=== PATIENT | male | born 1950 | race Caucasian/White ===

== ENCOUNTER 2017-11-30 13:39 | Emergency (ER) | payer OTHER ==
[2017-11-30 14:44] LABS: #Eosinphils 0.1 thou/uL (0.0-0.7); #Lymphocytes 1.7 thou/uL (1.20-3.40); #Monocytes 0.6 thou/uL (0.11-0.59); #Neutrophils 5.5 thou/uL (1.40-6.50); %Basophils 0.3 % (0.0-1.0); %Eosinophils 1.9 % (0.0-10.0); %Lymphocytes 21.2 % (21.0-51.0); %Monocytes 7.8 % (0.0-10.0); %Neutrophils 68.8 % (42.0-75.0); Hemoglobin 11.8 g/dL (14.0-18.0); Mean Corpuscular Hemoglobin 28.5 pg (27.0-31.0); Mean Corpuscular Volume 88.8 fL (78.0-98.0); Mean Platelet Volume 7.6 fL (7.4-10.4); Platelet Count 253 thou/uL (130-400); RBC Distribution Width 14.3 % (11.5-14.5); Red Blood Cell (RBC) Count 4.16 mill/uL (4.70-6.10); White Blood Cell (WBC) Count 7.9 thou/uL (4.8-10.8)
[2017-11-30 14:57] LABS: ALT (SGPT) 13 U/L (8-55); AST (SGOT) 18 U/L (5-34); Albumin 3.7 g/dL (3.4-4.8); Alkaline Phosphatase 121 U/L (40-150); Anion Gap 13 mmol/L (10-20); BUN (Urea Nitrogen) 16 mg/dL (8.4-25.7); Bilirubin, Total 1.2 mg/dL (0.2-1.2); Calc. Creatinine Clearance 0 mL/min (70-130); Calcium 9.6 mg/dL (7.8-10.44); Carbon Dioxide 28 mmol/L (23-31); Chloride 101 mmol/L (98-107); Estimated GFR-MDRD 60; Globulin 3.3 g/dL (2.4-3.5); Glucose 143 mg/dL (80-115); Potassium 3.3 mmol/L (3.5-5.1); Sodium 139 mmol/L (136-145)
[2017-11-30 15:02] LABS: CKMB 1.1 ng/mL (0-6.6); Troponin I Less than 0.010 ng/mL (< 0.028)
--- NOTE | 2017-11-30 15:52 | RAD ---
CHEST 1 VIEW: HISTORY: Swelling of the lower extremities. COMPARISON: 08/31/2014. FINDINGS: Left-sided transvenous defibrillator with lead position over the right atrium, right ventricle, and c oronary sinus. Heart is enlarged. The pulmonary vessels are within normal limits. Costophrenic ang les are clear. No consolidation or mass. No pneumothorax or osseous abnormalities. IMPRESSION: Cardiomegaly without evidence of congestive heart failure. POS: [facility]
[2017-11-30] MEDS ORDERED: Potassium Chloride 20 MEQ TAB ONE (15:56)
[2017-11-30] MEDS ORDERED: Bacitracin Zinc 1 Packet ONE (15:56)
--- NOTE | 2017-11-30 15:58 | ULT ---
BILATERAL LOWER EXTREMITY VENOUS ULTRASOUND WITH DOPPLER: HISTORY: Bilateral lower extremity swelling and edema. COMPARISON: None. TECHNIQUE: Echeverria scale, color flow, Doppler imaging and spectral waveform analysis is performed of the right and left lower extremity venous system. FINDINGS: Bilaterally, there is soft tissue swelling. Bilaterally, there is compressibility, presence of flow, and augmentation of the common femoral vein, femoral vein, and popliteal vein. There is flow in bilateral greater saphenous veins, profunda vein s. There is flow in the bilateral posterior tibial veins. IMPRESSION: 1. No evidence of thrombus in the left or right lower extremity venous system. 2. Bilateral lower extremity edema. POS: [facility]
--- NOTE | 2017-12-06 13:41 | EKG ---
Test Reason : Blood Pressure : / mmHG Vent. Rate : 071 BPM Atrial Rate : 063 BPM P-R Int : 000 ms QRS Dur : 140 ms QT Int : 474 ms P-R-T Axes : 000 039 -09 degrees QTc Int : 515 ms Ventricular-paced rhythm Abnormal ECG Confirmed by STERLING BECERRA DO ([id number]), image editor JUAN RODRIGUEZ ([id number]) on 12/06/2017 1:41:38 PM Referred By: Confirmed By:STERLING BECERRA DO
== END 2017-11-30 16:28 | disposition home or self-care (01) ==
LOC: ERS 13:39
DX: S80.822A Blister (nonthermal), left lower leg, initial encounter (principal); E87.6 Hypokalemia; I10 Essential (primary) hypertension; R60.0 Localized edema; E66.01 Morbid (severe) obesity due to excess calories; G47.30 Sleep apnea, unspecified; I25.2 Old myocardial infarction; E11.9 Type 2 diabetes mellitus without complications; K21.9 Gastro-esophageal reflux disease without esophagitis; E78.5 Hyperlipidemia, unspecified; M19.90 Unspecified osteoarthritis, unspecified site; I48.91 Unspecified atrial fibrillation; F17.210 Nicotine dependence, cigarettes, uncomplicated; Z79.899 Other long term (current) drug therapy; Z79.4 Long term (current) use of insulin; Z79.1 Long term (current) use of non-steroidal anti-inflammatories (NSAID); X58.XXXA Exposure to other specified factors, initial encounter
CPT/HCPCS: 36415; 36416; 71045; 80053; 82553; 83735; 83880; 84484; 85025; 93005; 93970; 94760

== ENCOUNTER 2018-01-15 13:26 | Outpatient (CLI) | payer MEDICARE, OTHER ==
--- NOTE | 2018-01-16 01:07 | HP ---
This is to replace dictation that I have started before and had to stop because of a telephone call. HISTORY OF PRESENT ILLNESS: Mr. Isaac Iraheta is a very pleasant 67-year-old gentleman who presented to the [facility] for evaluation of multiple venous ulcerations of the left lateral lower leg. The patient states that the ulcerations were first noted approximately 5 to 6 months ago. He states that he has been placed on Lasix to decrease the swelling of his lower extremities. He states that he continues to have, however, copious serous drainage from his wounds. The patient is receiving assistance with dressing changes by Home Health. The patient was referred to the Wound Center by Dr. Olivia Brooks. PAST MEDICAL HISTORY: 1. Congestive heart failure. 2. Diabetes mellitus. 3. Hypertension. 4. History of chronic headaches. 5. Coronary artery disease. 6. Chronic low back pain. 7. History of atrial fibrillation and atrial flutter, status post ablation x3. 8. Allergic rhinitis. 9. Gastroesophageal reflux disease. 10. Obstructive sleep apnea. 11. Asthma. 12. History of GI bleeding. 13. Osteoarthritis. PAST SURGICAL HISTORY: 1. Surgery for obstructive sleep apnea including tonsillectomy. 2. Left knee replacement. 3. Exploratory laparotomy. 4. Cataract surgery. 5. Defibrillator placement. MEDICATIONS: 1. Hydralazine. 2. Metformin. 3. Hydrocodone. 4. Soma. 5. Pradaxa. The patient does not have a list of his medications with him today. ALLERGIES: NO KNOWN DIAGNOSED ALLERGIES. SOCIAL HISTORY: Negative for tobacco use. The patient admits to consumption of alcohol on the weekends in the past. He states that he has not consumed alcohol in the last 6 to 7 years. FAMILY HISTORY: Significant for diabetes mellitus. The patient's mother and father were both diagnosed with diabetes mellitus. Family history is also significant for coronary artery disease. The patient's mother and father were both diagnosed with coronary artery disease. PHYSICAL EXAMINATION: VITAL SIGNS: Temperature 97.7, pulse 73, respirations 17, blood pressure 139/68. Accu-Chek 97. GENERAL: A 67-year-old gentleman, sitting on chair in examination room, in no acute distress. HEENT: Normocephalic, atraumatic. NECK: No nuchal rigidity. CHEST: Clear to auscultation. CV: Regular rate and rhythm. ABDOMEN: Soft. EXTREMITIES: Multiple ulcerations of the left lateral lower leg are present. These ulcerations are associated with copious serous drainage. No cellulitis of the left lower leg is appreciated. No maceration of the skin of the periwound of any of the wounds is noted. A dorsalis pedis pulse is palpable on the left. Edema of the left foot and lower leg is present on exam today. Edema of the right foot and lower leg is also present on today's exam. The circumferences of the right lower extremity at the ankle, calf, and knee are 33 cm, 49 cm, and 46 cm. Circumferences of the left lower extremity at the ankle, calf, and knee are 52 cm, 53 cm, and 48 cm. NEUROLOGIC: Grossly nonfocal. ASSESSMENT AND PLAN: 1. Chronic venous hypertension with ulcers and inflammation. Dressing changes of Xeroform gauze, ABDs, Kerlix, and Benjie bandages will be initiated today. These dressing changes are to be performed 3 times per week after cleansing and irrigation with the assistance of Home Health. The patient states that his will be able to perform dressing changes on the remaining days of the week. No antibiotics will be prescribed today based upon the appearance of the wounds. I will see Mr. Iraheta again on 02/05/2018. At this time, arrangements will begin for the initiation of in-home lymphedema therapy with a pneumatic pump. The patient will also be referred to Dr. Redman for evaluation for venous ablation on the left. The patient states that he is in the process of obtaining bariatric surgery. I have also encouraged the patient to ambulate for 5 to 10 minutes every hour while awake. The patient understands and is in agreement with the preceding treatment plan. 2. Congestive heart failure. 3. Diabetes mellitus. The patient's Accu-Chek in clinic today is 97. The patient has been told that for optimal wound healing, his blood glucoses should remain below 150. 4. Hypertension. 5. Chronic headaches. 6. Coronary artery disease. 7. Chronic low back pain. 8. History of atrial fibrillation and atrial flutter, status post ablation x3. 9. Allergic rhinitis. 10. Gastroesophageal reflux disease. 11. Obstructive sleep apnea. 12. Asthma. 13. History of gastrointestinal bleeding. 14. Osteoarthritis. Job ID: [id number]
== END 2018-01-15 13:27 | disposition home or self-care (01) ==
LOC: WCC 13:26
PROVIDERS: ATTEND Family Medicine
DX: I87.332 Chronic venous hypertension (idiopathic) with ulcer and inflammation of left lower extremity (principal); E11.622 Type 2 diabetes mellitus with other skin ulcer; L97.929 Non-pressure chronic ulcer of unspecified part of left lower leg with unspecified severity; I11.0 Hypertensive heart disease with heart failure; I50.9 Heart failure, unspecified; R51 Headache; I25.10 Atherosclerotic heart disease of native coronary artery without angina pectoris; M54.5 Low back pain; G89.29 Other chronic pain; K21.9 Gastro-esophageal reflux disease without esophagitis; G47.33 Obstructive sleep apnea (adult) (pediatric); J45.909 Unspecified asthma, uncomplicated; M19.90 Unspecified osteoarthritis, unspecified site; Z86.79 Personal history of other diseases of the circulatory system; Z87.19 Personal history of other diseases of the digestive system

== ENCOUNTER 2018-02-05 13:43 | Outpatient (CLI) | payer MEDICARE, OTHER ==
[2018-02-05] MEDS ORDERED: Sodium Chloride 0.9% 15 ML NEB ONE (15:00)
--- NOTE | 2018-02-05 15:20 | PRG ---
DATE OF SERVICE: 02/05/2018 HISTORY: Mr. Isaac Iraheta is a very pleasant, 67-year-old gentleman, who presents to the [facility]ound Center for evaluation of multiple venous ulcerations of the right and left lower legs. The patient stated at the time of his initial presentation to the Wound Center that the ulcerations of the left lower leg were first noted approximately 5 to 6 months previously. He stated that he had been placed on Lasix to decrease the swelling of his lower extremities. He stated that he continued to have, however, copious serous drainage from his wounds. The patient continues to receive assistance with dressing changes by Home Health. Mr. Iraheta was referred to the Wound Center by Dr. Olivia Brooks. PHYSICAL EXAMINATION: VITAL SIGNS: Temperature 97.5, pulse 71, respirations 18, blood pressure 143/69. EXTREMITIES: A circumferential ulceration of the left lower leg is present with a length of approximately 15 cm. The patient also has an ulceration over the right lower leg. The ulceration of the left lower leg is again associated with copious serous drainage. No cellulitis of the right or left lower leg is appreciated. No maceration of the skin of the periwound of either wound is noted. A dorsalis pedis pulse is palpable on the left and on the right. Less edema of the right and left lower extremities is present on exam today than at the time of the patient's last visit. ASSESSMENT AND PLAN: 1. Chronic venous hypertension with ulcers and inflammation. Dressing changes of Xeroform gauze, ABDs, Webril, and the 3M Coban 2-Layer Compression System will be initiated today. These dressing changes are to be performed 2 times per week after cleansing and irrigation. I will see Mr. Iraheta again in 2 weeks. Arrangements will continue for the initiation of in-home lymphedema therapy with a pneumatic pump. The patient states he will be seen by Dr. Redman for evaluation for venous ablation on the left early next year. The patient again reiterates that he is in the process of obtaining bariatric surgery. 2. Congestive heart failure. 3. Diabetes mellitus. Accu-Cheks will be obtained at the time of the patient's clinic visits. The patient has been reminded that for optimal wound healing, his blood glucoses should remain below 150. 4. Hypertension. 5. Chronic headaches. 6. Coronary artery disease. 7. Chronic back pain. 8. History of atrial fibrillation and atrial flutter, status post ablation x3. 9. Allergic rhinitis. 10. Gastroesophageal reflux disease. 11. Obstructive sleep apnea. 12. Asthma. 13. History of gastrointestinal bleeding. 14. Osteoarthritis. Job ID: [id number]
== END 2018-02-05 13:44 | disposition home or self-care (01) ==
LOC: WCC 13:43
PROVIDERS: ATTEND Family Medicine
DX: I87.333 Chronic venous hypertension (idiopathic) with ulcer and inflammation of bilateral lower extremity (principal); E11.22 Type 2 diabetes mellitus with diabetic chronic kidney disease; I13.0 Hypertensive heart and chronic kidney disease with heart failure and stage 1 through stage 4 chronic kidney disease, or unspecified chronic kidney disease; I50.9 Heart failure, unspecified; N18.9 Chronic kidney disease, unspecified; R51 Headache; M54.5 Low back pain; K21.9 Gastro-esophageal reflux disease without esophagitis; M19.90 Unspecified osteoarthritis, unspecified site; J45.909 Unspecified asthma, uncomplicated; G47.33 Obstructive sleep apnea (adult) (pediatric)
CPT/HCPCS: 29581; A4218

== ENCOUNTER 2018-02-19 14:23 | Outpatient (CLI) | payer MEDICARE, OTHER ==
--- NOTE | 2018-02-19 15:43 | PRG ---
DATE OF SERVICE: 02/19/2018 SUBJECTIVE: Mr. Isaac Iraheta is a very pleasant 67-year-old gentleman, who presents to the [facility] Center for evaluation of multiple venous ulcerations of the right and left lower legs. The patient stated at the time of his initial presentation to the Wound Center that the ulcerations of the left lower leg were first noted approximately 5 to 6 months previously. He stated that he had been placed on Lasix to decrease the swelling of his lower extremities. He stated that he continued to have however copious serous drainage from his wounds. The patient states he still receiving assistance with dressing changes by Home Health. Mr. Iraheta was referred to the Wound Center by Dr. Olivia Brooks. OBJECTIVE: VITAL SIGNS: Temperature 97.4, pulse 83, respirations 20, blood pressure 131/71. Accu-Chek 124. EXTREMITIES: A large ulceration of the left lower leg is present, which measures approximately 19.4 x 14.8 cm. The patient also has an ulceration over the right lower leg. The ulceration of the left lower leg is associated with copious green serous drainage. No cellulitis of the right or left lower leg is appreciated. No maceration of the skin of the periwound of either wound is noted. Edema of the right and left lower extremities is present on exam today. ASSESSMENT AND PLAN: 1. Chronic venous hypertension with ulcers and inflammation. Dressing changes of Xeroform gauze, ABDs, Webril, and the 3M Coban 2 Layer Compression System will be continued 1 to 2 times per week after cleansing and irrigation with the assistance of Home Health. I will see Mr. Iraheta again on 03/12/2018. At this time, arrangements will continue for the initiation of in-home lymphedema therapy with a pneumatic pump. The patient previously stated that he will be seen by Dr. Redman for evaluation for venous ablation on the left. The patient again states that he is in the process of obtaining bariatric surgery. He states he has also lost weight on his own. 2. Congestive heart failure. 3. Diabetes mellitus. The patient's Accu-Chek in clinic today is 124. The patient has been reminded that for optimal wound healing his blood glucoses should remain below 150. 4. Hypertension. 5. Chronic headaches. 6. Coronary artery disease. 7. Chronic back pain. 8. History of atrial fibrillation and atrial flutter, status post ablation x3. 9. Allergic rhinitis. 10. Gastroesophageal reflux disease. 11. Obstructive sleep apnea. 12. Asthma. 13. History of gastrointestinal bleeding. 14. Osteoarthritis. Job ID: [id number]
[2018-02-19] MEDS ORDERED: Sodium Chloride 0.9% 15 ML NEB ONE (17:43)
== END 2018-02-19 14:24 | disposition home or self-care (01) ==
LOC: WCC 14:23
PROVIDERS: ATTEND Family Medicine
DX: I87.333 Chronic venous hypertension (idiopathic) with ulcer and inflammation of bilateral lower extremity (principal); E11.622 Type 2 diabetes mellitus with other skin ulcer; L97.929 Non-pressure chronic ulcer of unspecified part of left lower leg with unspecified severity; L97.919 Non-pressure chronic ulcer of unspecified part of right lower leg with unspecified severity; I11.0 Hypertensive heart disease with heart failure; I50.9 Heart failure, unspecified; R51 Headache; I25.10 Atherosclerotic heart disease of native coronary artery without angina pectoris; M54.9 Dorsalgia, unspecified; K21.9 Gastro-esophageal reflux disease without esophagitis; G47.33 Obstructive sleep apnea (adult) (pediatric); J45.909 Unspecified asthma, uncomplicated; M19.90 Unspecified osteoarthritis, unspecified site; Z86.79 Personal history of other diseases of the circulatory system; Z87.19 Personal history of other diseases of the digestive system
CPT/HCPCS: A4218

== ENCOUNTER 2018-04-16 14:12 | Outpatient (CLI) | payer MEDICARE, OTHER ==
--- NOTE | 2018-04-16 11:15 | PRG ---
DATE OF SERVICE: 04/16/2018 HISTORY: Mr. Isaac Iraheta is a very pleasant 67-year-old gentleman, who presents to the [facility]ound Center for evaluation of multiple venous ulcerations of the right and left lower legs. The patient stated at the time of his initial presentation to the Wound Center that the ulcerations of the left lower leg were first noted approximately 5 to 6 months previously. He stated that he had been placed on Lasix to decrease the swelling of his lower extremities. He stated that he continued, however, to have copious serous drainage from his wounds. The patient continues to receive assistance with dressing changes by Home Health. The patient was referred to the Wound Center by Dr. Olivia Brooks. OBJECTIVE: VITAL SIGNS: Temperature 97.4, pulse 73, respirations 19, blood pressure 144/71. Accu-Chek 111. EXTREMITIES: A large ulceration of the left lower leg is present, which measures approximately 10.5 x 4.0 cm. The ulceration over the right lower leg has healed completely. No cellulitis of the right or left lower leg is appreciated. No maceration of the skin of the periwound of the left lower leg ulceration is noted. A dorsalis pedis pulse is palpable on the right and on the left. Less edema of the right and left lower extremities is present than at the time of the patient's last visit. ASSESSMENT AND PLAN: 1. Chronic venous hypertension with ulcers and inflammation. As stated above, the ulceration over the right lower leg has healed completely. For the remaining ulceration, dressing changes of Xeroform gauze, ABDs, Webril, and the 3M Coban 2 Layer Compression System will be continued 1 to 2 times per week after cleansing and irrigation with the assistance of Home Health. Webril and the 3M Coban 2 Layer Compression System will be applied to the right foot and lower leg at the time of dressing changes. I will see Mr. Iraheta again in 4 weeks. 2. Lymphedema tarda stage 2. The patient has received a pneumatic pump for in-home lymphedema therapy. He states that he is utilizing his pneumatic pump on a daily basis. 3. Congestive heart failure. 4. Diabetes mellitus. The patient's Accu-Chek in clinic today is 111. The patient has been reminded that for optimal wound healing, his blood glucoses should remain below 150. 5. Hypertension. 6. Chronic headaches. 7. Coronary artery disease. 8. Chronic back pain. 9. History of atrial fibrillation and atrial flutter, status post ablation x3. 10. Allergic rhinitis. 11. Gastroesophageal reflux disease. 12. Obstructive sleep apnea. 13. Asthma. 14. History of gastrointestinal bleeding. 15. Osteoarthritis. Job ID: [id number]
[2018-04-16] MEDS ORDERED: Sodium Chloride 0.9% 15 ML NEB ONE (18:00)
== END 2018-04-16 14:13 | disposition home or self-care (01) ==
LOC: WCC 14:12
PROVIDERS: ATTEND Family Medicine
DX: I87.332 Chronic venous hypertension (idiopathic) with ulcer and inflammation of left lower extremity (principal); E11.622 Type 2 diabetes mellitus with other skin ulcer; L97.929 Non-pressure chronic ulcer of unspecified part of left lower leg with unspecified severity; I11.0 Hypertensive heart disease with heart failure; I50.9 Heart failure, unspecified; I89.0 Lymphedema, not elsewhere classified; R51 Headache; I25.10 Atherosclerotic heart disease of native coronary artery without angina pectoris; M54.9 Dorsalgia, unspecified; G89.29 Other chronic pain; J30.9 Allergic rhinitis, unspecified; K21.9 Gastro-esophageal reflux disease without esophagitis; G47.33 Obstructive sleep apnea (adult) (pediatric); J45.909 Unspecified asthma, uncomplicated; M19.90 Unspecified osteoarthritis, unspecified site
CPT/HCPCS: 29581; A4218

== ENCOUNTER 2018-05-14 15:26 | Outpatient (CLI) | payer MEDICARE, OTHER ==
--- NOTE | 2018-05-14 11:10 | PRG ---
DATE OF SERVICE: 05/14/2018 SUBJECTIVE: Mr. Isaac Iraheta is a very pleasant 67-year-old gentleman, who presents to the [facility]ound Center for evaluation of multiple venous ulcerations of the right and left lower legs. The patient stated at the time of his initial presentation to the Wound Center that the ulcerations of the left lower leg were first noted approximately 5 to 6 months previously. He stated that he had been placed on Lasix to decrease the swelling of his lower extremities. He stated that he continued, however, to have copious serous drainage from his wounds. The patient continues to receive assistance with dressing changes by Home Health. The patient was referred to the Wound Center by Dr. Olivia Brooks. OBJECTIVE: VITAL SIGNS: Temperature 97.6, pulse 87, respirations 22, blood pressure 182/100. Accu-Chek 109. EXTREMITIES: All venous ulcerations of the right and left lower legs have healed completely. No cellulitis of the right or left lower leg is appreciated. No maceration of the skin of the right or left lower leg is present. A dorsalis pedis pulse is easily palpable on the left. Less edema of the right and left lower extremities is present than at the time of the patient's initial presentation to the Wound Center. ASSESSMENT AND PLAN: 1. Chronic venous hypertension with ulcers and inflammation as stated above. All ulcerations of the right and left lower legs have healed completely. Dressing changes will be discontinued. The patient has been instructed to continue to utilize his pneumatic pump and compression garments. He has also been encouraged to continue to lose weight. Mr. Iraheta will be discharged from clinic today with followup on a p.r.n. basis. 2. Lymphedema tarda stage II. The patient has received a pneumatic pump for in-home lymphedema therapy. Today, he states that he has been utilizing his pneumatic pump on almost a daily basis. 3. Congestive heart failure. 4. Diabetes mellitus. The patient's Accu-Chek in clinic today is 109. 5. Hypertension. 6. Chronic headaches. 7. Coronary artery disease. 8. Chronic back pain. 9. History of atrial fibrillation and atrial flutter, status post ablation x3. 10. Allergic rhinitis. 11. Gastroesophageal reflux disease. 12. Obstructive sleep apnea. 13. Asthma. 14. History of gastrointestinal bleeding. 15. Osteoarthritis. Job ID: [id number]
== END 2018-05-14 15:27 | disposition home or self-care (01) ==
LOC: WCC 15:26
PROVIDERS: ATTEND Family Medicine
DX: I87.333 Chronic venous hypertension (idiopathic) with ulcer and inflammation of bilateral lower extremity (principal); L97.929 Non-pressure chronic ulcer of unspecified part of left lower leg with unspecified severity; L97.919 Non-pressure chronic ulcer of unspecified part of right lower leg with unspecified severity; E11.622 Type 2 diabetes mellitus with other skin ulcer; I89.0 Lymphedema, not elsewhere classified; I11.0 Hypertensive heart disease with heart failure; I50.9 Heart failure, unspecified; R51 Headache; I25.10 Atherosclerotic heart disease of native coronary artery without angina pectoris; M54.9 Dorsalgia, unspecified; G89.29 Other chronic pain; K21.9 Gastro-esophageal reflux disease without esophagitis; G47.33 Obstructive sleep apnea (adult) (pediatric); J45.909 Unspecified asthma, uncomplicated; M19.90 Unspecified osteoarthritis, unspecified site
CPT/HCPCS: 97139; G0463; 99212

== ENCOUNTER 2018-07-28 11:27 | Outpatient (CLI) | payer MEDICARE, MEDICAID ==
--- NOTE | 2018-07-28 11:58 | ULT ---
Exam: Right upper quadrant ultrasound: HISTORY: Elevated liver function tests. COMPARISON: CT abdomen on 03/03/2016 as well as CTA thorax on 02/08/2010. FINDINGS: Liver: There are multiple scattered anechoic cystic structures seen throughout each lobe of the liver which demonstrates sonographic characteristics most compatible with multiple cysts. Largest is seen within the right hepatic lobe measuring 4.6 cm. Multiple hypodense cystic lesions were seen thro ughout each lobe the liver on prior CT abdomen in 2016 as well as as well as portions of the liver on CTA exam in 2009. Gallbladder: No evidence of gallbladder calculi, gallbladder wall thickening, or pericholecystic flui d. Common bile duct: The common duct is normal in caliber measuring 0.2 cm in diameter. Pancreas: Limited visualized portions of the pancreas demonstrate a normal sonographic appearance. Right kidney: Right kidney demonstrates a normal sonographic appearance. The right kidney measures 1 3.4 cm in length. IVC: The visualized IVC demonstrates a normal sonographic appearance. IMPRESSION: 1. Multiple hepatic cysts. 2. No gallbladder calculi are seen.
== END 2018-07-28 11:28 | disposition home or self-care (01) ==
LOC: SCSULT 11:27 → BICULT 11:28
PROVIDERS: ATTEND Family Medicine
DX: R74.8 Abnormal levels of other serum enzymes (principal); K76.89 Other specified diseases of liver
CPT/HCPCS: 76705

== ENCOUNTER 2018-10-21 19:30 | Outpatient (CLI) | payer MEDICARE, OTHER | END 2018-10-21 19:31 | disposition home or self-care (01) | LOC: SLEEPLAB 19:30 | PROVIDERS: ATTEND Family Medicine | DX: G47.33 Obstructive sleep apnea (adult) (pediatric) (principal); I11.0 Hypertensive heart disease with heart failure; I50.9 Heart failure, unspecified; E11.9 Type 2 diabetes mellitus without complications; E66.9 Obesity, unspecified; R51 Headache; R53.83 Other fatigue; K21.9 Gastro-esophageal reflux disease without esophagitis; R06.83 Snoring; G47.00 Insomnia, unspecified; Z68.42 Body mass index [BMI] 45.0-49.9, adult | CPT/HCPCS: 95811 ==

== ENCOUNTER 2019-01-19 10:26 | Day surgery (SDC) | payer MEDICARE, MEDICAID ==
[2019-01-13 17:02] LABS: Hemoglobin 14.4 g/dL (14.0-18.0); INR-International Normal Ratio 1.3; Mean Corpuscular HGB CONC 32.3 g/dL (32.0-36.0); Mean Corpuscular Hemoglobin 30.5 pg (27.0-31.0); Mean Corpuscular Volume 94.3 fL (78.0-98.0); Mean Platelet Volume 7.7 fL (7.4-10.4); Platelet Count 237 thou/uL (130-400); Prothrombin Time 15.8 SEC (12.0-14.7); RBC Distribution Width 13.3 % (11.5-14.5); Red Blood Cell (RBC) Count 4.72 mill/uL (4.70-6.10); White Blood Cell (WBC) Count 9.3 thou/uL (4.8-10.8)
[2019-01-13 17:27] LABS: Anion Gap 14 mmol/L (10-20); BUN (Urea Nitrogen) 16 mg/dL (8.4-25.7); Calc. Creatinine Clearance 0 mL/min (70-130); Calcium 9.8 mg/dL (7.8-10.44); Carbon Dioxide 26 mmol/L (23-31); Chloride 101 mmol/L (98-107); Estimated GFR-MDRD 75; Glucose 231 mg/dL (80-115); Potassium 4.1 mmol/L (3.5-5.1); Sodium 137 mmol/L (136-145)
[2019-01-19] MEDS ORDERED: Iopamidol 370 76% 100 ML VIAL ONE (10:44)
[2019-01-19] MEDS ORDERED: Heparin (Artline) 1,000 ML ONE (11:29)
[2019-01-19] MEDS ORDERED: Verapamil 5 MG/2 ML VIAL ONE (13:09)
[2019-01-19] MEDS ORDERED: Nitroglycerin 100MG/250ML BOT 250 ML ONE (13:09)
[2019-01-19] MEDS ORDERED: Heparin 10,000 UNITS/1 ML VIAL ONE (13:09)
== END 2019-01-19 17:10 | disposition home or self-care (01) ==
LOC: CCL 10:26
PROVIDERS: ATTEND Internal Medicine Cardiovascular Disease
PROC: 4A023N7 Measurement of Cardiac Sampling and Pressure, Left Heart, Percutaneous Approach (ICD-10-PCS; principal; 2019-01-19)
PROC: B2111ZZ Fluoroscopy of Multiple Coronary Arteries using Low Osmolar Contrast (ICD-10-PCS; 2019-01-19)
DX: R06.02 Shortness of breath (principal); I10 Essential (primary) hypertension; E78.5 Hyperlipidemia, unspecified; G47.33 Obstructive sleep apnea (adult) (pediatric); I25.2 Old myocardial infarction; I48.91 Unspecified atrial fibrillation; E66.9 Obesity, unspecified; Z68.41 Body mass index [BMI] 40.0-44.9, adult; Z79.4 Long term (current) use of insulin; Z79.899 Other long term (current) drug therapy; Z88.8 Allergy status to other drugs, medicaments and biological substances
CPT/HCPCS: 36416; 76942; 80048; 85027; 85610; 93458; C1769; J1644; Q9967

== ENCOUNTER 2019-10-28 12:19 | Inpatient (IN) | payer MEDICARE, MEDICAID, OTHER ==
[~2019-10-28 12:19] MED LIST: Heparin 1,000 UNITS/ML VIAL ONE; Iopamidol-370 76% 500 ML 1 ML ONE
[2019-10-28 13:09] LABS: #Basophils 0.2 thou/uL (0.0-0.2); #Lymphocytes 1.1 thou/uL (1.20-3.40); #Monocytes 0.9 thou/uL (0.11-0.59); #Neutrophils 9.1 thou/uL (1.40-6.50); %Eosinophils 0.4 % (0.0-10.0); %Lymphocytes 9.8 % (21.0-51.0); %Monocytes 7.9 % (0.0-10.0); Hemoglobin 12.8 g/dL (14.0-18.0); Mean Corpuscular HGB CONC 33.1 g/dL (32.0-36.0); Mean Corpuscular Hemoglobin 31.4 pg (27.0-31.0); Mean Corpuscular Volume 94.8 fL (78.0-98.0); Platelet Count 160 thou/uL (130-400); RBC Distribution Width 13.2 % (11.5-14.5); Red Blood Cell (RBC) Count 4.07 mill/uL (4.70-6.10); White Blood Cell (WBC) Count 11.4 thou/uL (4.8-10.8)
[2019-10-28 13:33] LABS: ALT (SGPT) 17 U/L (8-55); AST (SGOT) 17 U/L (5-34); Albumin 3.2 g/dL (3.4-4.8); Alkaline Phosphatase 111 U/L (40-110); Anion Gap 14 mmol/L (10-20); BUN (Urea Nitrogen) 21 mg/dL (8.4-25.7); Bilirubin, Total 2.5 mg/dL (0.2-1.2); CK (CPK) 61 U/L (30-200); Calc. Creatinine Clearance 0 mL/min (70-130); Calcium 8.8 mg/dL (7.8-10.44); Carbon Dioxide 22 mmol/L (23-31); Chloride 97 mmol/L (98-107); Estimated GFR-MDRD 77; Globulin 3.4 g/dL (2.4-3.5); Glucose 192 mg/dL (80-115); Potassium 3.6 mmol/L (3.5-5.1); Protein, Total 6.6 g/dL (5.8-8.1); Sodium 129 mmol/L (136-145)
--- NOTE | 2019-10-28 14:07 | RAD ---
XR Chest 1 View Portable HISTORY: Weakness, vomiting, multiple falls COMPARISON: 11/30/2017 FINDINGS: Left-sided AICD remains in place. The heart is enlarged. The lungs are well expanded withou t lobar consolidation, pneumothoraces, or pleural effusions. IMPRESSION: No radiographic evidence of acute cardiopulmonary process.
--- NOTE | 2019-10-28 14:08 | RAD ---
EXAM: 3 views of the left shoulder HISTORY: Shoulder pain and weakness COMPARISON: None FINDINGS: There is no evidence of acute fracture or dislocation. No degenerative changes are present. No soft tissue swelling is seen. A pacemaker is visualized in the upper left chest. IMPRESSION: No evidence of acute osseous abnormality.
--- NOTE | 2019-10-28 14:33 | CT ---
CT BRAIN WITHOUT CONTRAST: HISTORY:Altered mental status, weakness and falls COMPARISON:07/16/2018 FINDINGS: There are foci of decreased attenuation in the periventricular white matter, consistent with chronic small vessel ischemic disease. No evidence of acute infarct, hemorrhage, midline shift or abnormal extra-axial fluid collections is seen. The ventricular size is appropriate and the basilar cisterns are patent. The bony calvarium is intact. The visualized paranasal sinuses and mastoid air cells are well aerated. IMPRESSION: No CT evidence of acute intracranial process.
[2019-10-28] MEDS ORDERED: Morphine 4 MG/ML VIAL ONE (15:12)
--- NOTE | 2019-10-28 15:47 | PDOC.FPRHP ---
- History of Present Illness Chief Complaint: weakness History of Present Illness: Mr. Iraheta is a 69 yo male that presented for weakness, falling, and L shoulder pain. He first started feeling ill last when he stood up and had an episode of diaphoresis, paleness, malaise, fell, and then vomited and felt better. He has had repeated episodes since then and fell 5x and vomited 4x on Friday. He has even had episodes where he was unable to make it to the restroom because of weakness, resulting in incontinence. He states when he stands up, he feels like his knees and back give out, he feels generally weak and unbalanced, dizzy, has vision changes, chills, and sometimes vomits. He is unsure about LOC but states he is standing one moment and then "when I come to" he has to figure out how to get up off the ground. He endorses hitting his head. No palpitations/CP/numbness/tingling/D/abd pain. He is most concerned about his L shoulder pain induced by his fall today. XR performed in ED was neg. He went to [facility] on Friday because he was still feeling ill and they did a lumbar CT on which they found a liver mass. Per patient, Dr. Brooks discovered "liver spots" 1-2yrs ago that were unchanging. He saw Dr. Brooks earlier this week and she ordered a CT abd/pelvis with contrast that has not been obtained yet, to look for possible metastatic disease. He has a hx of CHF and "takes water pills" but there is no echo on hospital records. He has a hx of AFib for which he has a pacemaker/AICD. He says he feels it pacing and last got it checked a few months ago. On EKG, pacer ardon are seen consistently. He is on Eliquis. ED Course: CT head nml CXR showed cardiomegaly L shoulder XR neg. Morphine given for L shoulder pain UA positive for protein and 1000+ glucose CBC: WBC 11.4, H/H 12.8/38.6 CMP: Na 129, Cl 97, HCO3 22, TBili 2.5, Alk Phos 111 LA 2.6 - Allergies/Adverse Reactions Allergies Allergy/AdvReac Type Severity Reaction Status Date / Time АНДРЕЙ Inhibitors Allergy cough Verified 03/21/20 11:33 - Home Medications Medication Instructions Recorded Confirmed Type Cetirizine HCl [Zyrtec] 10 mg PO HS 10/29/12 01/19/19 History Pravastatin Sodium [Pravachol] 40 mg PO HS 10/29/12 01/19/19 History Ventolin HFA Inhaler 1 puff INH Q4HR PRN 10/29/12 01/19/19 History metFORMIN HCl 1,000 mg PO BID-WM 10/29/12 01/19/19 History HYDROcodone Bit/APAP 10/325 [[place]] 1 tab PO Q4HR PRN 06/01/15 01/19/19 History Furosemide [Lasix] 80 mg PO DAILY 09/06/15 01/19/19 History Amlodipine Besylate [amLODIPine 10 mg PO DAILY #30 tablet 03/04/16 01/19/19 Rx Besylate] DULoxetine HCl [Cymbalta] 60 mg PO DAILY 05/22/16 01/19/19 History Dabigatran [Pradaxa] 150 mg PO BID 05/22/16 01/19/19 History Fluticasone Propionate [Flonase 1 spray EA NARE HS 05/22/16 01/13/19 History Nasal [place]] Losartan Potassium 50 mg PO DAILY 05/22/16 01/19/19 History Zantac 150 mg PO HS 05/22/16 01/13/19 History Gabapentin 1 tab PO HS 01/13/19 01/19/19 History Insulin Glargine,Hum.Rec.Anlog 55 units SC BID 01/13/19 01/19/19 History [Basaglar Kwikpen U-100] Insulin Lispro [Humalog Kwikpen 10 units SC BID 01/13/19 01/19/19 History U-100] Naloxone HCl [Narcan] 1 applic IM ASDIR PRN 01/13/19 01/13/19 History Nebivolol HCl [Bystolic] 1 tab PO BID 01/13/19 01/19/19 History hydrALAZINE [Apresoline] 1 tab PO BID 01/13/19 01/19/19 History - History PMHx: AFib, CHF, T2DM, HTN, HLD, LAVELLE, ME PSHx: exp lap, cardiac ablation, pacemaker/defib in place FHx: ME and CVA in Dad Social: Denies t/a/d use - Review of Systems General: reports: fever/chills (endorses chills), weight/appetite/sleep changes Eyes: reports: vision changes (upon standing, prior to falls) Respiratory: reports: shortness of breath (at baseline, orthopnea) Cardiovascular: reports: edema (LE b/l), orthopnea. denies: chest pain, palpitation Gastrointestinal: reports: vomiting (4 episodes since Sun). denies: diarrhea, abdominal pain, GI bleeding Skin: denies: rashes Musculoskeletal: reports: swelling, arthritis/arthralgias Neurological: reports: syncope, weakness. denies: numbness - Vital signs BP: 101/52, Pulse: 72, Resp: 18, Temp: 98.8 (Oral), Pain: 10, O2 sat: 89 on (Room Air) - Physical Exam Constitutional: NAD, awake, alert and oriented, well developed -Constitutional: Obese HEENT: normocephalic and atraumatic, EOMI, grossly normal vision -HEENT: Dry mucous membranes. Decreased hearing at baseline Neck: supple, FROM Chest: no-tender to palpation, no lesions Heart: RRR, normal S1/S2, no murmurs/rubs/gallops, pulses present (2+ radial and dp b/l) -Heart: 1+ pitting edema in LE b/l Lungs: no respiratory distress, good air movement -Lungs: Minimal crackles in lung bases b/l Abdomen: non-tender, bowel sounds present -Abdomen: Obese abdomen, distended on palpation but normal, per patient Musculoskeletal: normal structure, normal tone, ROM grossly normal Neurological: no focal deficit Skin: no rash/lesions -Skin: Chronic darkened skin changes on LE b/l. Cap refill and turgor normal. Heme/Lymphatic: no unusual bruising or bleeding, no purpura, no petechia Psychiatric: normal mood and affect, good judgment and insight, intact recent and remote memory FMR H&P: Results - Labs Result Diagrams: 10/28/19 12:54 10/28/19 12:54 Lab results: WBC 11.4 thou/uL (4.8-10.8) H 10/28/19 12:54 Hgb 12.8 g/dL (14.0-18.0) L 10/28/19 12:54 Hct 38.6 % (42.0-52.0) L 10/28/19 12:54 MCV 94.8 fL (78.0-98.0) 10/28/19 12:54 Plt Count 160 thou/uL (130-400) 10/28/19 12:54 Neutrophils % 80.0 % (42.0-75.0) H 10/28/19 12:54 Sodium 129 mmol/L (136-145) L 10/28/19 12:54 Potassium 3.6 mmol/L (3.5-5.1) 10/28/19 12:54 Chloride 97 mmol/L (98-107) L 10/28/19 12:54 Carbon Dioxide 22 mmol/L (23-31) L 10/28/19 12:54 BUN 21 mg/dL (8.4-25.7) 10/28/19 12:54 Creatinine 0.97 mg/dL (0.7-1.3) 10/28/19 12:54 Glucose 192 mg/dL (80-115) H 10/28/19 12:54 Lactic Acid 2.6 mmol/L (0.5-2.2) H 10/28/19 14:07 Calcium 8.8 mg/dL (7.8-10.44) 10/28/19 12:54 Total Bilirubin 2.5 mg/dL (0.2-1.2) H 10/28/19 12:54 AST 17 U/L (5-34) 10/28/19 12:54 ALT 17 U/L (8-55) 10/28/19 12:54 Alkaline Phosphatase 111 U/L (40-110) H 10/28/19 12:54 Creatine Kinase 61 U/L (30-200) 10/28/19 12:54 Serum Total Protein 6.6 g/dL (5.8-8.1) 10/28/19 12:54 Albumin 3.2 g/dL (3.4-4.8) L 10/28/19 12:54 Additional comment: Reviewed by me - EKG Interpretation EKG: Reviewed by me FMR H&P: A/P - Problem List (1) Chronic atrial fibrillation Current Visit: No Status: Chronic Code(s): I48.2 - CHRONIC ATRIAL FIBRILLATION * DO NOT USE * (2) Hyperlipidemia Current Visit: No Status: Chronic Code(s): E78.5 - HYPERLIPIDEMIA, UNSPECIFIED (3) Hypokalemia Current Visit: No Status: Chronic Code(s): E87.6 - HYPOKALEMIA (4) Chronic back pain Current Visit: No Status: Chronic Code(s): M54.9 - DORSALGIA, UNSPECIFIED; G89.29 - OTHER CHRONIC PAIN (5) Diabetes type 2, controlled Current Visit: No Status: Chronic Code(s): E11.9 - TYPE 2 DIABETES MELLITUS WITHOUT COMPLICATIONS Qualifiers: Diabetes mellitus long-term insulin use: with exterminator termite use Diabetes mellitus complication status: without complication Qualified Code(s): E11.9 - Type 2 diabetes mellitus without complications; Z79.4 - long term care administrator (current) use of insulin (6) GERD (gastroesophageal reflux disease) Current Visit: No Status: Chronic Code(s): K21.9 - GASTRO-ESOPHAGEAL REFLUX DISEASE WITHOUT ESOPHAGITIS (7) HTN (hypertension) Current Visit: No Status: Chronic Code(s): I10 - ESSENTIAL (PRIMARY) HYPERTENSION Qualifiers: Hypertension type: essential hypertension Qualified Code(s): I10 - Essential (primary) hypertension (8) Morbid obesity Current Visit: No Status: Chronic Code(s): E66.01 - MORBID (SEVERE) OBESITY DUE TO EXCESS CALORIES (9) Hyperbilirubinemia Current Visit: No Status: Acute Code(s): E80.6 - OTHER DISORDERS OF BILIRUBIN METABOLISM (10) CHF (congestive heart failure) Current Visit: No Status: Acute Code(s): I50.9 - HEART FAILURE, UNSPECIFIED (11) SIRS (systemic inflammatory response syndrome) Current Visit: No Status: Acute Code(s): R65.10 - SIRS OF NON-INFECTIOUS ORIGIN W/O ACUTE ORGAN DYSFUNCTION (12) Liver mass Current Visit: No Status: Acute Code(s): R16.0 - HEPATOMEGALY, NOT ELSEWHERE CLASSIFIED - Plan This is a 69yo male who presented to the ED for weakness and falls. SIRS - SIRS: WBC 11.4 without shift, RR 22 on arrival, LA 2.6 - Cause unknown - UA positive for 50 protein and >1000 glucose - CXR showed enlarged heart but no pulmonary processes - EKG showed pacing ardon and flat T waves - Trop <0.01 - Mild dehydration - mucous membranes dry and hx of vomiting. Bolus 1L of fluids, then oral - Orthostatic vitals ordered L shoulder injury - Injured with fall today and tender to palpation - XR neg Hypokalemia - Na 129 Hyperbilirubinemia - TBili 2.5 - Alk Phos 111 Anemia - H/H 12.8/38.6 CHF - Dx per patient and clinic records - No echo in records - CXR showed enlarged heart - Echo ordered - BNP ordered - Strict I&Os T2DM - On Metformin and insulin, per clinic records - BG 192 on admission - Continue home meds - Monitor BGs HTN - Per patient and clinic records - Normotensive on arrival - Continue home meds - Monitor BPs Liver mass - Liver spots unchanged for 1-[address] at [facility] on Friday showed liver mass - CT abd/pelvis with and without contrast ordered AFib with pacemaker/AICD - Pacemaker/AICD in place. Pacing ardon visible on EKG - Last checked a few months ago to verify it's working - On Eliquis at home. Continue here. - Stable LAVELLE - Hx per clinic records - Provide CPAP/O2 support at night HLD - Per patient and clinic records - Continue home meds Dispo: Medical obs, LOS >48h Diet: CC DVT Ppx: home Eliquis IVF: None, oral Code: Full PCP: [facility] - Dr. Olivia Brooks FMR H&P: Upper Level - Plan Date/Time: 10/28/19 1546 Alysa Fatima have evaluated this patient and agree with findings/plan as outlined by program management intern resident. Pertinent changes/additions are listed here. 69 yo M with PMH of HTN, DM2, Afib with AICD/pacemaker on anticoagulation, LAVELLE, CHF (unknown EF), presents for diffuse weakness over the past few days that is worsening. Patient had imaging done at [facility] of his back that showed a liver mass (records were requested). Patient reports he is lightheaded when he tried to stand, and loses his balance easily. He reports he has fallen multiple times over the past few days and reports hitting his head and L shoulder. He does not know if he lost consciousness. Otherwise, he reports increased thirst, nausea and decreased appetite. Denies palpitations, SOB, chest pain; reports dry cough. In ED, CT head was normal. CXR showed no acute process. UA had no signs of infection, but showed glucosuria and elevated protein. L shoulder XR showed no acute findings. WBC elevated at 11.4, CMP significant for Na 130 (corrected for hyperglycemia), K 3.6, Chloride 97 Carbon dioxide 22, glucose 192, lactic acid 2.6, T bili 2.5, Alk phos 111. BNP 213 (baseline 140). PEx: General: NAD Lungs: BCTA Cardiac: RRR, no murmur Abdomen: obese, soft, nontender Skin: no rashes LE: 1+ pitting edema bilaterally Neuro: CN 2-12 grossly intact A/P: #SIRS criteria -WBC mildly elevated, mild tachypnea recorded in ED. No known source at this time. CXR neg, UA neg. -Blood and urine cultures pending -covid swab pending #Lactic acidosis -gave 1L fluids, will trend #Generalized weakness -CT head negative -No known source at this time. Patient is mildly hyponatremic. Consider could possibly be metastatic disease, as reported liver mass seen at [facility] -CT abd/pelvis ordered w/wo contrast. -PT/OT consulted -TSH wnl #Liver mass -Per report, mass in liver -Ct abd/pelvis -Request records from [facility] #Hyperbili #Elevated Alk phos -continue to trend #CHF -Unknown EF, no echo records seen in [facility] -consider repeat Echo -Trop elevated at 213 -monitor fluid status -Continue home meds, strict I/o, daily weights #shoulder pain -XR neg #DM2 -on metformin and insulin, unsure why he is on this regimen -A1C pending #HTN -continue home meds #Afib -continue home eliquis Dispo: medical obs Diet: CC Dvt ppx: home eliquis GI ppx: famotidine PCP: Dr. Brooks Code status: Full L Sumeet HIDALGO PGY3 See program management intern note for management of other chronic problems.
[2019-10-28 16:08] LABS: Bacteria/HPF None Seen HPF (None Seen); Bilirubin 1+ (Negative); Blood, Urine Negative (Negative); Clarity Clear (Clear); Glucose, Urine (Dipstick) Greater than 1000 mg/dL (Negative); Ketone, Urine Negative (Negative); Leukocyte Negative Leu/uL (Negative); Mucous/LPF 2+ LPF (<2+); Nitrite Negative (Negative); Protein, Urine (Dipstick) 50 mg/dL (Neg-Trace); RBC/HPF 0-3 HPF (0-3); Specific Gravity, Urine 1.028 (1.002-1.036); Squamous Epithelial None Seen HPF (0-3); WBC/HPF 0-3 HPF (0-3); pH, Urine 5.5 (5.0-9.0)
[2019-10-28] MEDS ORDERED: Lactated Ringer's 1,000 ML IV SCH ×3 (17:00→20:45)
[2019-10-28 17:38] LABS: Hemoglobin A1c 9.2 % (4.0-6.0)
[2019-10-28 17:44] LABS: Magnesium 1.7 mg/dL (1.6-2.6)
[2019-10-28] MEDS ORDERED: Ondansetron ODT 4 MG TAB PO PRN (17:58)
[2019-10-28] MEDS ORDERED: Acetaminophen 325 MG TAB PO PRN (17:58)
[2019-10-28] MEDS ORDERED: HumaLOG 300 UNITS/3 ML VIAL SC PRN (17:58)
[2019-10-28] MEDS ORDERED: Dextrose 50% Abboject 50 ML SYRINGE SLOW IVP PRN (17:58)
[2019-10-28] MEDS ORDERED: Dextrose 5% in Water 1,000 ML IV PRN (17:58)
[2019-10-28] MEDS ORDERED: Furosemide 40 MG/4 ML VIAL SLOW IVP SCH (19:15)
[2019-10-28 19:55] VITALS: BMI 48.4
[2019-10-28] MEDS ORDERED: Albuterol Sulfate 2.5 mg/3 ml Neb NEB PRN (20:06)
[2019-10-28 20:16] LABS: Lactic Acid 3.2 mmol/L (0.5-2.2)
--- NOTE | 2019-10-28 20:24 | CT ---
CT ABDOMEN AND PELVIS WITH AND WITHOUT IV CONTRAST: 10/28/19 HISTORY: Liver mass. COMPARISON: 03/03/16. FINDINGS: There are mild dependent changes in the lung bases. Numerous low density lesions throughout the right and left lobe of the liver are again seen, most of which appear stable. The largest in the left lobe is stable in size measuring about 4 cm. The larges t in the right lobe is peripherally located and measures 5 cm (previously 4 cm). Attenuation values which previously demonstrated cysts demonstrates some enhancement on the current study even in those lesions that are stable in size. The 5 cm lesion in the right lobe demonstrates a interval change in attenuation values. A limited US was performed on the following day and this proved the lesions to b e cysts. The change in attenuation values is thus due to artifact, which is significant on the curren t CT scan compared to the previous study. There are calcified gallstones. The spleen, pancreas, adrenal glands and kidneys are unremarkable. No free air, free fluid or lymphadenopathy is seen in the abdomen or pelvis. The small bowel loops a re not abnormally dilated. There is mild colonic diverticulosis. There is fat containing umbilical he rnia is again noted. There are vascular calcifications without evidence of aneurysmal dilatation of t he abdominal aorta. There are degenerative changes in the spine. A normal appearing appendix is pres ent. IMPRESSION: 1. Numerous liver cysts. 2. Colonic diverticulosis. 3. Cholelithiasis. 4. Fat containing umbilical hernia. POS: MZA
[2019-10-28] MEDS ORDERED: Non-Formulary Item 1 EACH (Insulin Glargine,Hum.Rec.Anlog [Basaglar Kwikpen U-100] 100 UN SC SCH (21:00)
[2019-10-28] MEDS: Dabigatran 150 mg Capsule PO SCH (21:48)
[2019-10-28] MEDS: Famotidine 20 MG TAB PO SCH (21:48)
[2019-10-28] MEDS: Atorvastatin Calcium 10 MG TAB PO SCH (21:48)
[2019-10-28] MEDS: Gabapentin 100 MG CAP PO SCH (21:48)
[2019-10-28] MEDS: Fluticasone Propionate Nasal Spray 16 gm Bottle NASAL SCH (21:48)
[2019-10-28] MEDS: Insulin Glargine 55 UNITS in Pre-Filled Syringe 1 EACH SC SCH (21:49)
[2019-10-28] MEDS: HYDROcodone/Acetaminophen 10/325 mg Tablet PO PRN (21:50)
[2019-10-29 01:29] LABS: Lactic Acid 1.3 mmol/L (0.5-2.2)
[2019-10-29] MEDS: HYDROcodone/Acetaminophen 10/325 mg Tablet PO PRN ×4 (03:01→20:42)
--- NOTE | 2019-10-29 06:23 | PDOC.FM ---
- Subjective Subjective: Patient is very pleasant this morning but reports that he is not feeling well. Reports continued pain in his shoulder that radiates to his chest, continued difficulty breathing laying flat. Reports pain throughout his entire body. Reports chills. Denies N/V. Discussed today's plan with the patient including continued investigation into the source of infection and shoulder pain - Objective Vital Signs & Weight: Vital Signs (12 hours) Temp Pulse Resp BP Pulse Ox 10/29/19 04:42 97.7 F 70 20 125/79 93 L 10/29/19 00:19 98.0 F 70 18 108/69 93 L 10/28/19 19:30 98.3 F 82 24 H 135/78 95 Weight Weight 153.314 kg I&O: 10/27/19 10/28/19 10/29/19 06:59 06:59 06:59 Intake Total 480 Balance 480 Result Diagrams: 10/29/19 05:59 10/29/19 05:59 Phys Exam - Physical Examination Constitutional: NAD Sitting on edge of bed, NC not in place Respiratory: no wheezing, clear to auscultation bilateral possible rales/rhonchi heard LLL Cardiovascular: RRR Gastrointestinal: soft, non-tender, positive bowel sounds Umbilical hernia noted Musculoskeletal: edema present erythemetous and edematous BLE Neurological: non-focal, normal sensation Psychiatric: normal affect Dx/Plan - Plan Plan: Sepsis 2/2 to bacteremia - SIRS criteria on admission: WBC 11.4 without shift, RR 22 on arrival, LA 2.6 - Source: likely skin infection, possibly scrotum - Bl cx: 2/2 Group B strep - Originally started on vanc until cultures resulted shortly after, switched to cefazolin (10/28) - UA: no signs of infection, cultures pending - CXR showed enlarged heart but no pulmonary processes, consider lateral view - s/p 1L bolus of fluids, encouraged PO intake, will monitor fluid status L shoulder injury - possible rotator cuff injury as a result of fall - consider MRI in outpatient setting Hypokalemia - Na 129 - encouraged PO intake today Hyperbilirubinemia - TBili 2.5 - Alk Phos 111 - RUQ US ordered Anemia - H/H 12.8/38.6 > 12/37.7 - iron studies ordered CHF - Dx per patient and clinic records - EKG showed pacing ardon and flat T waves, CXR showed enlarged heart - Echo ordered for today - BNP: 213 - continue home lasix and monitor fluid status - Strict I&Os Liver mass - Lumbar CT as ECHO TECH; awaiting records - CT abd/pelvis: numerous liver masses, some demonstrating interval change, diverticulosis, cholelithiasis - RUQ US today Chronic conditions: -AFib with pacemaker/AICD: Pacemaker/AICD in place. Pacing ardon visible on EKG; continue home dabigatran -T2DM: continue home Metformin and insulin -HTN: Continue home meds -LAVELLE: CPAP at night -HLD: Continue home meds Diet: CC Ppx: home Dabigatran IVF: SL Code: Full PCP: SOPHIA Brooks Dispo: pending further medical management
[2019-10-29 06:35] LABS: Band 15 % (5-11); Eosinophils 1 % (0-10); Lymphocytes 10 % (21-51); MDiff Complete? YES; Mean Corpuscular HGB CONC 31.9 g/dL (32.0-36.0); Mean Corpuscular Hemoglobin 29.6 pg (27.0-31.0); Mean Corpuscular Volume 92.6 fL (78.0-98.0); Mean Platelet Volume 8.1 fL (7.4-10.4); Monocytes 9 % (0-10); Neutrophil 65 % (42-75); Platelet Count 177 thou/uL (130-400); Platelet Morphology Comment Appears Adequate; RBC Distribution Width 13.2 % (11.5-14.5); Red Blood Cell (RBC) Count 4.07 mill/uL (4.70-6.10); White Blood Cell (WBC) Count 12.6 thou/uL (4.8-10.8)
[2019-10-29 06:40] LABS: Anion Gap 12 mmol/L (10-20); BUN (Urea Nitrogen) 19 mg/dL (8.4-25.7); Calc. Creatinine Clearance 190 mL/min (70-130); Calcium 8.5 mg/dL (7.8-10.44); Carbon Dioxide 24 mmol/L (23-31); Chloride 96 mmol/L (98-107); Estimated GFR-MDRD Greater than 90; Glucose 124 mg/dL (80-115); Potassium 3.4 mmol/L (3.5-5.1); Sodium 129 mmol/L (136-145)
[2019-10-29] MEDS ORDERED: Potassium Chloride 20 MEQ TAB PO SCH (08:15)
[2019-10-29] MEDS: Insulin Glargine 55 UNITS in Pre-Filled Syringe 1 EACH SC SCH ×2 (09:13→20:44)
[2019-10-29] MEDS: Furosemide 80 MG TAB PO SCH (09:15)
[2019-10-29] MEDS: Loratadine 10 MG TAB PO SCH (09:15)
[2019-10-29] MEDS: Bumetanide 1 MG TAB PO SCH (09:15)
[2019-10-29] MEDS: Nebivolol HCl 5 MG TAB PO SCH (09:17)
[2019-10-29] MEDS: Dabigatran 150 mg Capsule PO SCH ×3 (09:17→22:06)
[2019-10-29] MEDS: Famotidine 20 MG TAB PO SCH ×2 (09:17→20:44)
--- NOTE | 2019-10-29 11:39 | PRG ---
DATE OF SERVICE: 10/29/2019 SUBJECTIVE: Mr. Iraheta is sitting in bed, in no acute distress. Interestingly, he is growing a group B strep from one of his blood cultures. We are switching him to intravenous cefazolin and will get some input from Dr. Rainey. His white count overnight had gone from 11,000 to 12,600 with a significant left shift. We are also awaiting the results of an echocardiogram. His chest x-ray does not reveal pneumonia. His urinalysis is not consistent with a urinary tract infection. We examined as best his body habitus would allow his scan, it could find no evidence of an active soft tissue infection. We may possibly need a CONNIE if his TTE does not show any evidence of endocarditis. In the meantime, we will continue the intravenous cefazolin, await input from Dr. Rainey. Job ID: [id number]
--- NOTE | 2019-10-29 11:54 | ULT ---
US Abdomen Limited HISTORY: Liver cysts COMPARISON: 07/28/2018 CORRELATION: CT scan of 10/28/2019 and 03/03/2016 FINDINGS: Limited sonogram of the liver demonstrates multiple cysts corresponding to the findings on the CT sca n and previous ultrasound. The change in attenuation values on the CT scan from yesterday are likely due to artifact. IMPRESSION: Liver cysts.
[2019-10-29] MEDS: CEFAZOLIN 2 GM in Premix Bag 1 BAG IVPB SCH ×2 (13:00→20:43)
[2019-10-29] MEDS ORDERED: CEFAZOLIN 1 GM VIAL SLOW IVP SCH (13:00)
[2019-10-29 14:39] LABS: Iron 32 ug/dL (65-175); Iron Binding Capacity, Total 260 mcg/dL (261-462)
[2019-10-29 15:21] LABS: Ferritin 447.54 ng/mL (22-322)
[2019-10-29] MEDS: Atorvastatin Calcium 10 MG TAB PO SCH (20:43)
[2019-10-29] MEDS: Fluticasone Propionate Nasal Spray 16 gm Bottle NASAL SCH (20:44)
[2019-10-29] MEDS: Gabapentin 100 MG CAP PO SCH (20:44)
--- NOTE | 2019-10-29 23:28 | CON ---
DATE OF CONSULTATION: 10/29/2019 REASON FOR CONSULTATION: Bacteremia. HISTORY OF PRESENT ILLNESS: A 69-year-old has history of morbid obesity, cardiomyopathy with decreased ejection fraction, supraventricular tachycardia with atrial fibrillation/flutter requiring EP intervention in the past and AICD placement, who developed weakness and recurrent episodes of fall at home. He developed a little bit of a headache after one of the falls. He did have chills and some cough. On arrival, he had a BP of 101/52, pulse 72, temperature 98.8, O2 sats 89% on room air. Of note, the patient has O2 supplementation at home, which he has been using more often lately. The exam showed the patient to be alert and oriented. Lungs examination was described as normal. Heart exam described as normal. Likewise, the abdomen exam was difficult because of body habitus. The other findings included a white cell count of 11.4, hemoglobin 12.8, platelets 160 with 80% neutrophils. The initial sodium 129, creatinine 0.97, bilirubin was 2.5 with transaminases normal, alkaline phosphatase 111, CK 61, albumin 3.2, lipase 5, lactic acid 2.6. Urinalysis with 0 to 3 wbc's and only one set seems to have been obtained and that showed group B Streptococcus. This was from the right hand. The urine culture no growth at 12 hours. IMAGING STUDIES: We have an abdomen and pelvis CT, which showed liver cysts, which are chronic, diverticulosis, cholelithiasis, umbilical hernia; and a brain CT with no abnormal intracranial process identified. He does have those liver cysts, which are quite large about 4 cm, the largest one measuring 5 cm. Some of those liver cysts have enhancement. The lung bases included in the study did not show any remarkable findings. The chest x-ray had no evidence of infiltrates. Currently, Mr. Iraheta is seen by the bedside. He has a very prominent abdominal panniculus. His is in the room with him. He is a little bit dazed from his illness, has a hard time answering questions. He denies headaches. He has pain in the lower extremities, but the thing that bothers him the most is lower back pain, which he rates at 10/10, has been present for a few days. It is not clear the timeline of the back pain because of his cognitive issues. Some cough, some dyspnea. No abdominal pain. No genitourinary symptoms. PAST MEDICAL HISTORY: Cardiomyopathy, dilated, AICD; obesity; supraventricular tachycardia, EP interventions in the past; type 2 diabetes; hyperlipidemia; hypertension; and osteoarthritis. SOCIAL HISTORY: , disabled. No smoking history. No drug use. FAMILY HISTORY: CVA, obesity, and type 2 diabetes. ALLERGIES: NONE. MEDICATION LISTS: 1. Ventolin. 2. Lipitor. 3. Bumex. 4. Pradaxa. 5. Pepcid. 6. Flonase. 7. Lasix. 8. Neurontin. 9. [place]. 10. Insulin. 11. Lactated Ringer's. 12. Claritin. 13. Bystolic. 14. Protonix. 15. Cefazolin. PHYSICAL EXAMINATION: VITAL SIGNS: T-max 98.4, BP 130/70, heart rate 74, O2 saturation 94% on 2 L. SKIN: I could not evaluate his perineal area and scrotal area. Apparently, he had a skin tear a few weeks ago, which was managed elsewhere and he may still have some symptoms, that area needs to be evaluated next time he is in bed. He does have some cyanosis, kind of violaceous discoloration of the skin in the left leg, just sqjg-ie-ztkertaxre tender. A little bit of livedo reticularis associated with both in the right and left side. He is voiding in the urinal and diaper. Has a peripheral IV access. No lymphadenopathy. HEENT: Ocular movements conjugate. Sclerae white. Conjunctivae normal. Oral cavity with quite a few teeth in place with desiccated enamel and abnormal periodontal areas. Dry oral mucosa. No oral lesions noted. NECK: Supple. No jugular vein distention. LUNGS: With diminished breath sounds at bases. No wheezing. HEART: S1 and S2. Regular rate. Diminished heart sounds. No obvious murmurs. No S3. ABDOMEN: Protuberant panniculus. Very large abdominal compartment. No tenderness. Hard to evaluate for organomegaly or bladder distention. EXTREMITIES: No joint inflammatory activity noted. No obvious edema. Pulses are diminished in dorsalis pedis. The extremities are cool to touch. I could not feel any popliteal pulses. He is diffusely weak. No focal neural findings. He is a little bit confused. He knows his name and recognizes his and knows he is in the hospital. LABORATORY DATA: The followup white cell count 12.6, hemoglobin 12, platelets 177 with 15% bands. Followup chemistry with sodium 129, creatinine 0.82, iron 32, TIBC 260 with ferritin 447, vitamin B12 is low at 190. This is the first or only B12 level that has been measured here in the record. There is an abdomen ultrasound done today, which showed liver cysts, but nothing else. ASSESSMENT: Morbid obesity; cardiomyopathy dilated with AICD; back pain, severe; bacteremia with group B strep; history of recent skin tear in the scrotal area, which required surgical intervention at [facility]; and wvng-mg-nirlmhxh neutrophilia. DISCUSSION: The differential diagnosis includes persistent versus transient bacteremia. We cannot assess that because only one sample has been submitted for cultures according to the record. If he were to have persistent bacteremia, then the possibility of endocarditis and colonization of AICD needs to be considered. If it is transient, then alternate site would have to be evaluated for. The presence of lumbosacral back pain raises the possibility of inflammatory process in the back area including diskitis, osteomyelitis in the lumbosacral area. I think his weight is borderline for MRI, but he has an AICD and it could be an AICD suitable for MRI with intervention by the company sales representative marine supplies or not, we will have to find out because he may need an MRI subsequently. An alternate approach would be a CT of the lumbosacral spine to evaluate for osteolytic lesions. We will go ahead and repeat the blood cultures x2, order an echocardiogram if not yet ordered. He may need a transesophageal echocardiogram depending on clinical progress. He needs to have the scrotal area and perineal area evaluated for possible inflammatory changes. Intraabdominal inflammatory process and respiratory tract inflammatory process are less likely. Job ID: [id number]
[2019-10-30] MEDS ORDERED: Apixaban 5 MG TAB PO SCH (00:15)
[2019-10-30] MEDS: HYDROcodone/Acetaminophen 10/325 mg Tablet PO PRN ×5 (00:38→20:19)
[2019-10-30] MEDS: CEFAZOLIN 2 GM in Premix Bag 1 BAG IVPB SCH ×3 (03:45→20:18)
[2019-10-30] MEDS: Lactated Ringer's 250 ML IV SCH ×2 (05:40→06:59)
--- NOTE | 2019-10-30 06:20 | PDOC.FM ---
- Subjective Subjective: Pt is complaining of left shoulder pain and lower back pain. As far as his weakness goes, he states it is improved. However, he is unable to sit up and roll over in bed 2/2 pain. His insulin was held overnight because his glucose was 89. He received a 250cc bolus 2/2 soft BPs. Tolerating PO, no other complaints. No CP, SOB, VERNON, vision changes, abdominal pain. - Objective MAR Reviewed: Yes Vital Signs & Weight: Vital Signs (12 hours) Temp Pulse Resp BP BP Pulse Ox 10/30/19 04:53 114/66 102/62 10/30/19 04:00 97.4 F L 71 20 90/54 L 100 10/30/19 02:57 96 10/30/19 00:00 98.4 F 70 20 96/58 L 95 10/29/19 20:00 92 L 10/29/19 19:37 98.8 F 71 20 112/58 L 92 L Weight Weight 153.314 kg I&O: 10/28/19 10/29/19 10/30/19 06:59 06:59 06:59 Intake Total 1380 1150 Output Total 500 500 Balance 880 650 Result Diagrams: 10/29/19 05:59 10/29/19 05:59 Phys Exam - Physical Examination Constitutional: NAD HEENT: moist MMs Neck: supple, full ROM Respiratory: no wheezing, no rales, clear to auscultation bilateral Cardiovascular: RRR, no significant murmur Gastrointestinal: soft, non-tender 1+ pitting edema b/l left shoulder TTP, unable to fully examine 2/2 pain. Unable to assess back Neurological: moves all 4 limbs Psychiatric: normal affect, A&O x 3 Skin: no rash Dx/Plan - Plan Plan: Sepsis 2/2 to bacteremia - SIRS criteria on admission: WBC 11.4 without shift, RR 22 on arrival, LA 2.6 - Source: likely skin infection, possibly scrotum vs endocarditis, vs osteomyelitis vs discitis - Bl cx: 2/2 Group B strep - Originally started on vanc until cultures resulted shortly after, switched to cefazolin (10/28) - UA: no signs of infection, cultures negative - CXR showed enlarged heart but no pulmonary processes, consider lateral view - will monitor fluid status -Dr Rainey on board, appreciate the recs L shoulder injury - possible rotator cuff injury as a result of fall - consider MRI in outpatient setting Hypokalemia - Na 129, labs not back today, will continue to monitor - encouraged PO intake today Hyperbilirubinemia - TBili 2.5 - Alk Phos 111 - RUQ US ordered Anemia - H/H 12.8/38.6 > 12/37.7, labs not back today, will continue to monitor - iron studies ordered, iron and TIBC low, Vitamin B12 low, but MCV WNL, will treat as indicated CHF - Dx per patient and clinic records - EKG showed pacing ardon and flat T waves, CXR showed enlarged heart - Echo showed EF 35-40%, consider cardiology consult - BNP: 213 - continue home lasix and monitor fluid status - Strict I&Os 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 Pacing ardon visible on EKG; continue home dabigatran -T2DM: continue home Metformin and insulin -HTN: Continue home meds -LAVELLE: CPAP at night -HLD: Continue home meds Diet: CC Ppx: home Dabigatran IVF: SL Code: Full PCP: SOPHIA Brooks Dispo: pending further medical management
[2019-10-30] MEDS ORDERED: Lactated Ringer's 250 ML IV SCH (07:00)
[2019-10-30 08:09] LABS: #Basophils 0.1 thou/uL (0.0-0.2); #Eosinphils 0.1 thou/uL (0.0-0.7); #Lymphocytes 1.1 thou/uL (1.20-3.40); #Monocytes 1.1 thou/uL (0.11-0.59); #Neutrophils 14.6 thou/uL (1.40-6.50); %Basophils 0.5 % (0.0-1.0); %Eosinophils 0.4 % (0.0-10.0); %Lymphocytes 6.7 % (21.0-51.0); %Monocytes 6.3 % (0.0-10.0); %Neutrophils 86.2 % (42.0-75.0); Hemoglobin 12.3 g/dL (14.0-18.0); Mean Corpuscular HGB CONC 32.4 g/dL (32.0-36.0); Mean Corpuscular Hemoglobin 30.8 pg (27.0-31.0); Mean Corpuscular Volume 95.1 fL (78.0-98.0); Mean Platelet Volume 8.9 fL (7.4-10.4); Platelet Count 192 thou/uL (130-400); RBC Distribution Width 13.3 % (11.5-14.5); White Blood Cell (WBC) Count 16.9 thou/uL (4.8-10.8)
[2019-10-30 08:12] LABS: ALT (SGPT) 14 U/L (8-55); AST (SGOT) 15 U/L (5-34); Albumin 3.1 g/dL (3.4-4.8); Alkaline Phosphatase 112 U/L (40-110); Anion Gap 16 mmol/L (10-20); BUN (Urea Nitrogen) 24 mg/dL (8.4-25.7); Bilirubin, Total 3.4 mg/dL (0.2-1.2); Calc. Creatinine Clearance 155 mL/min (70-130); Calcium 8.5 mg/dL (7.8-10.44); Carbon Dioxide 25 mmol/L (23-31); Chloride 96 mmol/L (98-107); Estimated GFR-MDRD 75; Globulin 3.4 g/dL (2.4-3.5); Glucose 114 mg/dL (80-115); Potassium 3.5 mmol/L (3.5-5.1); Protein, Total 6.5 g/dL (5.8-8.1); Sodium 133 mmol/L (136-145)
--- NOTE | 2019-10-30 08:50 | RAD ---
Exam: XR Shoulder Lt 3 View STANDARD HISTORY: Left shoulder pain. COMPARISON: None 2019 FINDINGS: Left glenohumeral osteoarthropathy is again seen. No fracture or dislocation is identified. Triple le ad left subclavian AICD device is again noted in place. Views of the left shoulder are stable compared to prior exam. IMPRESSION: Stable views left shoulder without acute osseous abnormality appreciated.
[2019-10-30] MEDS: Nebivolol HCl 5 MG TAB PO SCH (09:10)
[2019-10-30] MEDS: Furosemide 80 MG TAB PO SCH (09:10)
[2019-10-30] MEDS: Bumetanide 1 MG TAB PO SCH (09:10)
[2019-10-30] MEDS: Insulin Glargine 55 UNITS in Pre-Filled Syringe 1 EACH SC SCH ×2 (09:14→20:26)
[2019-10-30] MEDS: Famotidine 20 MG TAB PO SCH ×2 (09:20→20:18)
[2019-10-30] MEDS: Loratadine 10 MG TAB PO SCH (09:20)
[2019-10-30] MEDS: Dabigatran 150 mg Capsule PO SCH (09:22)
[2019-10-30 10:17] LABS: Magnesium 1.9 mg/dL (1.6-2.6)
[2019-10-30] MEDS ORDERED: Cyanocobalamin (Vitamin B-12) 1,000 MCG TAB PO SCH (11:30)
[2019-10-30] MEDS: Cyclobenzaprine 10 MG TAB PO PRN ×2 (11:32→21:53)
[2019-10-30] MEDS ORDERED: Bumetanide 1 MG TAB PO SCH (14:45)
[2019-10-30 14:46] LABS: SARS-CoV-2 MS2 Positive; SARS-CoV-2 N Gene Negative; SARS-CoV-2 S Gene Negative; SARS-CoV-2 by NAA Not Detected (NotDetected); SARS-CoV-2 orf1ab Negative
--- NOTE | 2019-10-30 18:51 | PRG ---
DATE OF SERVICE: 10/30/2019 Please see the note from Dr. Allyosn Mims, for which I agree. The patient was seen, evaluated, discussed, and examined with the residents by bedside. Here for sepsis growing on group B strep. Not sure of the source initially, but on exam today, definitely looks like he has cellulitis of the shins, worse on the left. Warm to the touch, slightly painful. Slightly hyponatremic when he came in. Has a liver cyst that sounds benign. He is in severe pain. Takes hydrocodone, it sounds like 60 mg total a day typically, but had a fall that led to this admission. Back is hurting although more, left shoulder is hurting more. The x-ray did not show fracture. Has a low B12. Some question if he had some problems with his scrotum in the last few months, even had a hospitalization for bleeding there. Definitely has a large hydrocele on the left. On exam, I do not appreciate any bleeding or reason to think he has an infection there. Ejection fraction is 35% in this gentleman as well. Currently on cefazolin, likely we can add vancomycin for the cellulitis, that is getting worse on the cefazolin. Appreciate Infectious Disease input as well. Job ID: [id number]
[2019-10-30] MEDS: Gabapentin 100 MG CAP PO SCH (20:18)
[2019-10-30] MEDS: Apixaban 5 MG TAB PO SCH (20:19)
[2019-10-30] MEDS: Atorvastatin Calcium 10 MG TAB PO SCH (20:19)
[2019-10-30] MEDS: Fluticasone Propionate Nasal Spray 16 gm Bottle NASAL SCH (20:22)
[2019-10-31] MEDS: HYDROcodone/Acetaminophen 10/325 mg Tablet PO PRN ×5 (00:49→22:52)
[2019-10-31] MEDS: CEFAZOLIN 2 GM in Premix Bag 1 BAG IVPB SCH ×3 (04:30→20:35)
[2019-10-31 06:09] LABS: #Eosinphils 0.1 thou/uL (0.0-0.7); #Lymphocytes 1.3 thou/uL (1.20-3.40); #Monocytes 1.3 thou/uL (0.11-0.59); #Neutrophils 13.9 thou/uL (1.40-6.50); %Basophils 0.2 % (0.0-1.0); %Eosinophils 0.7 % (0.0-10.0); %Lymphocytes 7.6 % (21.0-51.0); %Monocytes 7.6 % (0.0-10.0); %Neutrophils 83.9 % (42.0-75.0); Hemoglobin 12.8 g/dL (14.0-18.0); Mean Corpuscular HGB CONC 30.4 g/dL (32.0-36.0); Mean Corpuscular Hemoglobin 29.5 pg (27.0-31.0); Mean Corpuscular Volume 96.8 fL (78.0-98.0); Mean Platelet Volume 8.6 fL (7.4-10.4); Platelet Count 238 thou/uL (130-400); RBC Distribution Width 13.5 % (11.5-14.5); Red Blood Cell (RBC) Count 4.35 mill/uL (4.70-6.10); White Blood Cell (WBC) Count 16.6 thou/uL (4.8-10.8)
--- NOTE | 2019-10-31 06:23 | PDOC.FM ---
- Subjective Subjective: Patient resting comfortably in bed this AM. Complaining of left leg pain. Tolerating PO, still has not had a BM. No CP, SOB, abdominal pain. Has not really been able to move around 2/2 pain - Objective MAR Reviewed: Yes Vital Signs & Weight: Vital Signs (12 hours) Temp Pulse Resp BP BP Pulse Ox 10/31/19 04:30 98.0 F 69 20 113/71 97 10/31/19 03:43 97 10/31/19 01:14 97.7 F 70 16 96/61 97 10/30/19 21:17 98.0 F 70 16 145/80 H 97 10/30/19 20:00 97 Weight Weight 153.314 kg I&O: 10/29/19 10/30/19 10/31/19 06:59 06:59 06:59 Intake Total 1380 1150 Output Total 500 500 700 Balance 880 650 -700 Result Diagrams: 10/31/19 05:40 10/31/19 05:40 Phys Exam - Physical Examination Constitutional: NAD HEENT: moist MMs, sclera anicteric Neck: supple, full ROM Respiratory: no wheezing, clear to auscultation bilateral Cardiovascular: RRR, no significant murmur Gastrointestinal: soft, non-tender decreased bowel sounds Musculoskeletal: pulses present 1+ pitting edema Neurological: moves all 4 limbs Deviation from normal: increased redness and warmth b/l -: left leg marked around redness, nursing to cris right leg Dx/Plan - Plan Plan: Sepsis 2/2 to bacteremia - SIRS criteria on admission: WBC 11.4 without shift, RR 22 on arrival, LA 2.6 - Source: likely skin infection, possibly scrotum vs endocarditis, vs oste omyelitis vs discitis - Bl cx: 2/2 Group B strep - Originally started on vanc until cultures resulted shortly after, switched to cefazolin (10/28) - Added Vanc back 10/29 AM 2/2 evidence of cellulitis but later stopped 2/2 ID recs. - UA: no signs of infection, cultures negative - CXR showed enlarged heart but no pulmonary processes, consider lateral view - will monitor fluid status -CT spine for evaluation of evidence of infection since patient has back pain -follow up repeat cultures: no growth to date -Dr Rainey on board, appreciate the recs L shoulder injury - possible rotator cuff injury as a result of fall - consider MRI in outpatient setting Hyponatremia, resolved - encourage PO intake -continue to monitor Hyperbilirubinemia - TBili 2.5 - Alk Phos 111 - RUQ US ordered showed liver cysts Anemia - will continue to monitor - iron studies ordered, iron and TIBC low, Vitamin B12 low, but MCV WNL, will treat with vit B12 supplement CHF - Dx per patient and clinic records - EKG showed pacing ardon and flat T waves, CXR showed enlarged heart - Echo showed EF 35-40%, consider cardiology consult - BNP: 213 on admission - continue home lasix and monitor fluid status - Strict I&Os -1500 mL fluid restriction 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 Pacing ardon visible on EKG; continue home dabigatran -T2DM: continue home Metformin and insulin -HTN: Continue home meds -LAVELLE: CPAP at night -HLD: Continue home meds Diet: CC Ppx: home Dabigatran IVF: SL Code: Full PCP: SOPHIA Brooks Dispo: pending further medical management
[2019-10-31 06:30] LABS: Phosphorus 2.5 mg/dL (2.3-4.7)
[2019-10-31 06:31] LABS: ALT (SGPT) 13 U/L (8-55); AST (SGOT) 15 U/L (5-34); Albumin 3.1 g/dL (3.4-4.8); Alkaline Phosphatase 131 U/L (40-110); Anion Gap 15 mmol/L (10-20); BUN (Urea Nitrogen) 20 mg/dL (8.4-25.7); Calc. Creatinine Clearance 181 mL/min (70-130); Calcium 8.4 mg/dL (7.8-10.44); Carbon Dioxide 26 mmol/L (23-31); Chloride 98 mmol/L (98-107); Estimated GFR-MDRD 89; Globulin 3.6 g/dL (2.4-3.5); Glucose 148 mg/dL (80-115); Magnesium 2.2 mg/dL (1.6-2.6); Potassium 3.7 mmol/L (3.5-5.1); Protein, Total 6.7 g/dL (5.8-8.1); Sodium 135 mmol/L (136-145)
[2019-10-31] MEDS ORDERED: Bisacodyl 5 MG TAB PO PRN (08:20)
[2019-10-31] MEDS: Polyethylene Glycol 3350 17 GM Packet PO SCH (09:00)
[2019-10-31] MEDS: Cyclobenzaprine 10 MG TAB PO PRN ×2 (09:24→16:32)
[2019-10-31] MEDS: Loratadine 10 MG TAB PO SCH (09:27)
[2019-10-31] MEDS: Apixaban 5 MG TAB PO SCH ×2 (09:27→20:35)
[2019-10-31] MEDS: Famotidine 20 MG TAB PO SCH ×2 (09:27→20:35)
[2019-10-31] MEDS: Cyanocobalamin (Vitamin B-12) 1,000 MCG TAB PO SCH (09:27)
[2019-10-31] MEDS: DULoxetine 60 MG CAP PO SCH (09:28)
[2019-10-31] MEDS: Bumetanide 1 MG TAB PO SCH (09:29)
[2019-10-31] MEDS ORDERED: Iopamidol-370 76% 500 ML 1 ML ONE (10:18)
--- NOTE | 2019-10-31 10:47 | CT ---
LUMBAR SPINE CT SCAN WITH IV CONTRAST: HISTORY: Low back pain, concern for osteomyelitis versus diskitis. FINDINGS: Severe generalized disk-osteophytosis and facet arthrosis, evidence for spondylosis. No acute fractu re or dislocation. No evidence for bony erosive or destructive changes. T11-T12 disk: Severe central canal and lateral recess stenosis. T12-L1 disk: Moderate central canal and lateral recess stenosis. L1-L2 disk: Severe left lateral recess stenosis and left foraminal stenosis. L2-L3 disk: Severe left lateral recess and left foraminal stenosis. L3-L4 disk: Mild central canal and moderate lateral recess and bilateral foraminal stenosis. L4-L5 disk: Mild central canal and moderate lateral recess and bilateral foraminal stenosis. L5-S1 disk: Severe disk-osteophytosis with mild central canal and moderate to severe bilateral reces s and severe bilateral foraminal stenosis. IMPRESSION: Variable severity up to severe central canal, lateral recess, and foraminal stenosis of the lumbar sp ine. No evidence for bony erosive or destructive changes. No paravertebral soft tissues changes to suggest acute diskitis. If diskitis/osteomyelitis remains a clinical concern, followup bone scan or WBC nuclear scan might be of benefit. POS: OFF
[2019-10-31] MEDS: Insulin Glargine 55 UNITS in Pre-Filled Syringe 1 EACH SC SCH ×3 (11:41→21:45)
--- NOTE | 2019-10-31 13:39 | PRG ---
DATE OF SERVICE: 10/31/2019 The patient was seen, evaluated, discussed, and examined with the residents by bedside. Please see the note from Dr. Mims, for which I agree. This gentleman is still dealing with extremely red and swollen, now painful shins. I think it is probably source of infection and unfortunately not really improving. White count still fairly high. Not really having fever, but trying to figure out the source for the group B strep in his blood cultures. He is just on Ancef, so we are going to add vancomycin to that and we will see what Infectious Disease says beyond that. Go ahead and order a CT of his lower back, because he is having pretty severe pain there and there is question of he could potentially have diskitis. Otherwise afebrile. Vital signs stable. The sodium is better. Pain management is better as well and get him up and out of bed as well today. Job ID: [id number]
--- NOTE | 2019-10-31 19:20 | PRG ---
DATE OF SERVICE: 10/31/2019 SUBJECTIVE: Mr. Iraheta is sitting and being transferred to the chair. He is about the same. I guess he feels a little better. He looks more comfortable at rest. He states that he still has that pain in the left lower extremity, but it is not very intense. It is only in certain segments and according to him, it is always that way, it has not changed. He denies any headaches. Mild shortness of breath. No abdominal pain. He is still with that back pain, which is quite intense. No neurological changes. OBJECTIVE: VITAL SIGNS: His temperature is normal, blood pressure 120/70, pulse 69, respirations 17, O2 saturation ranging from 92% to 98%. GENERAL: Does not appear in distress. He actually looks better overall than at the beginning. LUNGS: Clear to auscultation and percussion. HEART: S1 and S2. Regular rate. The AICD site is normal appearing. ABDOMEN: Protuberant abdomen as previously, but not tender. EXTREMITIES: In the lower extremities with that kind of somewhat slight violaceous area of skin color change in the left leg and has a very narrow band. LABORATORY DATA: White cell count 16.6, hemoglobin 12.8, platelets 238 with 83% neutrophils. His bands were 15, but now they are down obviously. Creatinine is 0.86. Bilirubin 2. Transaminases normal. Alkaline phosphatase 131, albumin 3.1. Microbiology with 2 sets now, we have 2 sets of blood cultures from admission obtained about 20 minutes apart with group B strep. Lumbosacral spine CT just with degenerative joint disease and this was a contrast study, I believe, yes, it was a contrast study. There is an echocardiogram, EF 35% to 40% and mild mitral and tricuspid regurgitation. ASSESSMENT AND DISCUSSION: Morbid obesity, cardiomyopathy dilated with automatic implantable cardioverter-defibrillator, back pain, severe bacteremia 2 out of 2 sets, appears to be continuous bacteremia. The changes in the left leg, I think are related to stasis and venous hypertension, not true cellulitis. The areas of tenderness are very bvjz-gk-hlvqnirb and only on localized areas. I do not think that this represents the culprit here that led to the bacteremia. The most likely scenario is an alternate site. I am concerned with automatic implantable cardioverter-defibrillator in the lumbosacral spine area. Unfortunately, we cannot do an MRI and bone scans are notoriously poorly sensitive and I would not encourage carrying them out, so I think we are going to have to treat this empirically as a more serious infection for at least 4 to 6 weeks with IV Rocephin in the outpatient setting. He will require a PICC line placement. Job ID: [id number]
[2019-10-31] MEDS: Gabapentin 100 MG CAP PO SCH (20:35)
[2019-10-31] MEDS: Atorvastatin Calcium 10 MG TAB PO SCH (20:35)
[2019-10-31] MEDS: Fluticasone Propionate Nasal Spray 16 gm Bottle NASAL SCH (20:36)
[2019-11-01] MEDS: CEFAZOLIN 2 GM in Premix Bag 1 BAG IVPB SCH ×3 (04:16→20:18)
[2019-11-01] MEDS: Cyclobenzaprine 10 MG TAB PO PRN ×2 (04:16→20:17)
[2019-11-01 05:59] LABS: #Eosinphils 0.1 thou/uL (0.0-0.7); #Lymphocytes 1.2 thou/uL (1.20-3.40); #Monocytes 0.8 thou/uL (0.11-0.59); #Neutrophils 9.2 thou/uL (1.40-6.50); %Basophils 0.2 % (0.0-1.0); %Eosinophils 1.1 % (0.0-10.0); %Lymphocytes 10.2 % (21.0-51.0); %Monocytes 6.8 % (0.0-10.0); %Neutrophils 81.7 % (42.0-75.0); Hemoglobin 12.3 g/dL (14.0-18.0); Mean Corpuscular HGB CONC 30.6 g/dL (32.0-36.0); Mean Corpuscular Hemoglobin 29.6 pg (27.0-31.0); Mean Corpuscular Volume 96.5 fL (78.0-98.0); Mean Platelet Volume 8.1 fL (7.4-10.4); Platelet Count 287 thou/uL (130-400); RBC Distribution Width 13.5 % (11.5-14.5); Red Blood Cell (RBC) Count 4.14 mill/uL (4.70-6.10); White Blood Cell (WBC) Count 11.2 thou/uL (4.8-10.8)
--- NOTE | 2019-11-01 06:03 | PDOC.FM ---
- Subjective Subjective: Patient complains of chronic frontal headache for the past several months. He also notes chronic back pain, unchanged from baseline, for the past 40 years. He rates his pain an overall 8/10. The patient also complains of inability to urinate overnight despite straining 3 times. He denies problems urinating in the past or a history of BPH. He notes leg redness bilaterally, unchanged from baseline, related to venous stasis. - Objective MAR Reviewed: Yes Vital Signs & Weight: Vital Signs (12 hours) Temp Pulse Resp BP Pulse Ox 11/01/19 04:26 98.8 F 70 18 140/69 93 L 11/01/19 00:20 96 11/01/19 00:19 98.4 F 70 18 159/51 H 99 10/31/19 20:00 96 10/31/19 19:00 98.5 F 69 20 136/69 96 Weight Weight 153.314 kg I&O: 10/30/19 10/31/19 11/01/19 06:59 06:59 06:59 Intake Total 1150 700 Output Total 500 700 500 Balance 650 -700 200 Result Diagrams: 11/01/19 05:39 11/01/19 05:39 Phys Exam - Physical Examination Constitutional: NAD Morbidly obese HEENT: moist MMs, sclera anicteric Neck: supple, full ROM Respiratory: no wheezing, clear to auscultation bilateral Cardiovascular: RRR, no significant murmur Gastrointestinal: soft, non-tender, positive bowel sounds Musculoskeletal: no edema, pulses present Limited ROM in back related to pain Neurological: non-focal, moves all 4 limbs Psychiatric: normal affect, A&O x 3 Skin: no rash, normal turgor Deviation from normal: Numerous tattoos -: Lower extremity redness and warmth bilaterally, unchanged from baseline Dx/Plan - Plan Plan: Sepsis 2/2 bacteremia of undetermined source SIRS criteria on admission: WBC 11.4 without shift, RR 22 on arrival, LA 2.6. Bl cx: 2/2 Group B strep. Originally started on vanc, switched to cefazolin (10/28). Added Vanc back 10/29 am 2/2 evidence of cellulitis but later stopped 2/2 ID recs. - UA: no signs of infection, cultures negative - CXR: enlarged heart but no pulmonary processes - CT L Spine: mild to severe central canal, lateral recess, and foraminal stenosis, no acute diskitis - F/u repeat blood cultures - Dr Rainey on board, appreciate the recs - treat empirically for 4-6 weeks with IV Rocephin outpatient Urinary retention Patient reports inability to urinate overnight. Denies hx BPH -Intermittent straight cath as needed L shoulder injury - possible rotator cuff injury as a result of fall - Unable to obtain MRI due to implantable automatic cardioverter-defibrillator Hyponatremia, resolved -encourage PO intake -continue to monitor Hyperbilirubinemia - TBili 2.5 - Alk Phos 111 - RUQ US ordered showed liver cysts Anemia - will continue to monitor - Iron and TIBC low, Vitamin B12 low, MCV WNL, treating with vit B12 supplement CHF Dx per patient and clinic records. EKG showed pacing ardon and flat T waves, CXR showed enlarged heart. Echo showed EF 35-40%. 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 Olivia Brooks Dispo: Home with pending symptom improvement and coordination of outpatient antibiotics Addendum - Attending - Attending Attestation Date/Time: 11/01/19 1322 I personally evaluated the patient and discussed the management with Dr. Mansi graf. I agree with the History, Examination, Assessment and Plan documented above with any addition or exceptions noted below.
[2019-11-01 06:19] LABS: ALT (SGPT) 12 U/L (8-55); AST (SGOT) 17 U/L (5-34); Alkaline Phosphatase 133 U/L (40-110); Anion Gap 14 mmol/L (10-20); BUN (Urea Nitrogen) 15 mg/dL (8.4-25.7); Bilirubin, Total 1.4 mg/dL (0.2-1.2); Calc. Creatinine Clearance 194 mL/min (70-130); Calcium 8.2 mg/dL (7.8-10.44); Carbon Dioxide 28 mmol/L (23-31); Chloride 96 mmol/L (98-107); Estimated GFR-MDRD Greater than 90; Globulin 3.6 g/dL (2.4-3.5); Glucose 102 mg/dL (80-115); Potassium 3.2 mmol/L (3.5-5.1); Protein, Total 6.6 g/dL (5.8-8.1); Sodium 135 mmol/L (136-145)
[2019-11-01] MEDS: Famotidine 20 MG TAB PO SCH ×2 (07:57→20:16)
[2019-11-01] MEDS: DULoxetine 60 MG CAP PO SCH (07:57)
[2019-11-01] MEDS: Apixaban 5 MG TAB PO SCH ×2 (07:57→20:16)
[2019-11-01] MEDS: Nebivolol HCl 5 MG TAB PO SCH (07:57)
[2019-11-01] MEDS: Bumetanide 1 MG TAB PO SCH (07:57)
[2019-11-01] MEDS: Insulin Glargine 55 UNITS in Pre-Filled Syringe 1 EACH SC SCH ×2 (07:58→21:07)
[2019-11-01] MEDS: Cyanocobalamin (Vitamin B-12) 1,000 MCG TAB PO SCH (07:58)
[2019-11-01] MEDS: Loratadine 10 MG TAB PO SCH (07:58)
[2019-11-01] MEDS: Furosemide 80 MG TAB PO SCH (07:58)
[2019-11-01] MEDS: Polyethylene Glycol 3350 17 GM Packet PO SCH (07:58)
[2019-11-01] MEDS ORDERED: Potassium Chloride 20 MEQ TAB PO SCH (09:45)
[2019-11-01 13:24] LABS: SARS-CoV-2 MS2 Positive; SARS-CoV-2 N Gene Negative; SARS-CoV-2 S Gene Negative; SARS-CoV-2 by NAA Not Detected (NotDetected); SARS-CoV-2 orf1ab Negative
[2019-11-01 16:14] LABS: Hematocrit 35.5 % (37.5-51.0); RBC Folate Test Component 1085 ng/mL (>498)
[2019-11-01] MEDS: Gabapentin 100 MG CAP PO SCH (20:16)
[2019-11-01] MEDS: HYDROcodone/Acetaminophen 10/325 mg Tablet PO PRN (20:17)
[2019-11-01] MEDS: Atorvastatin Calcium 10 MG TAB PO SCH (20:17)
--- NOTE | 2019-11-01 20:36 | PQF ---
CLINICAL DOCUMENTATION CLARIFICATION FORM: Dear Dr. Angel Date: 11/01/2019 Please exercise your independent, professional judgment in responding to the clarification form. Clinical indicators are provided on the bottom of this form for your review. Please check appropriate box(s): HEART FAILURE: A. ACUITY [ ] Acute [ ] Acute on Chronic [ X ] Chronic B. TYPE: [ X ] Systolic [ ] Diastolic [ ] Combined Systolic / Diastolic [ ] Other diagnosis [ ] Unable to determine In addition, please specify: Present on Admission (POA): [ X ] Yes [ ] No [ ] Unable to determine For continuity of documentation, please document condition throughout progress notes and discharge summary. Thank You. CLINICAL INDICATORS - SIGNS / SYMPTOMS / LABS / RESULTS AND LOCATION IN EMR *LAB 10/27 ([facility]): BNP 213.6 *ED 10/27: * Vital Signs: O2 Sat 89-94% on Room Air RR 18-22 * Hyponatremia *H&P 10/27 ([facility]): * CXR showed cardiomegaly * Respiratory: reports: shortness of breath (at baseline, orthopnea) * Lungs: Minimal crackles in lung base b/l * 1 + pitting edema in LE b/l * CHF Status: Acute *PN 10/30 ([facility]): Echo showed EF 35-40% RISK FACTORS / RESULTS AND LOCATION IN EMR *H&P 10/27 ([facility]): PMHx: Afib, CHF, T2DM, HTN, HLD, LAVELLE, MD TREATMENTS / RESULTS AND LOCATION IN EMR *H&P 10/27 ([facility]): Strict I&Os *Reports 10/27 ([facility]): Chest X-Ray *LAB ([facility]): BNP 10/27, CMP 10/27, 10/29-10/31, BMP 10/28 *Reports 10/28 ([facility]): Echocardiogram *MAR ([facility]): Bumex 1mg PO daily 10/28, 10/29, 10/31, Lasix 80mg PO Daily 10/28, 10/31 *PN 10/30 ([facility]): Consider cardiology consult 1500 ml fluid restriction Thank you, Shabana CDS/[employer] Signature: Shabana Chaudhari RN, CDS Phone #: [phone] [email or web address]
[2019-11-01] MEDS: Fluticasone Propionate Nasal Spray 16 gm Bottle NASAL SCH (21:07)
[2019-11-02] MEDS: CEFAZOLIN 2 GM in Premix Bag 1 BAG IVPB SCH (04:49)
[2019-11-02] MEDS: HYDROcodone/Acetaminophen 10/325 mg Tablet PO PRN ×2 (04:58→19:47)
[2019-11-02] MEDS: Cyclobenzaprine 10 MG TAB PO PRN ×2 (04:58→19:47)
[2019-11-02 05:37] LABS: #Eosinphils 0.1 thou/uL (0.0-0.7); #Lymphocytes 1.1 thou/uL (1.20-3.40); #Monocytes 0.9 thou/uL (0.11-0.59); %Basophils 0.1 % (0.0-1.0); %Eosinophils 0.8 % (0.0-10.0); %Lymphocytes 12.5 % (21.0-51.0); %Monocytes 10.3 % (0.0-10.0); %Neutrophils 76.2 % (42.0-75.0); Hemoglobin 12.6 g/dL (14.0-18.0); Mean Corpuscular HGB CONC 31.1 g/dL (32.0-36.0); Mean Corpuscular Hemoglobin 29.4 pg (27.0-31.0); Mean Corpuscular Volume 94.4 fL (78.0-98.0); Mean Platelet Volume 8.1 fL (7.4-10.4); Platelet Count 325 thou/uL (130-400); RBC Distribution Width 13.3 % (11.5-14.5); White Blood Cell (WBC) Count 9.1 thou/uL (4.8-10.8)
--- NOTE | 2019-11-02 06:16 | PDOC.FM ---
- Subjective Subjective: Patient reports feeling ok today. He notes improvement of chronic back pain, chronic shoulder pain and chronic headache and rates pain an overall 6/10. He also reports improvement of bilateral lower leg erythema. He denies headache, vision changes, chest pain, SOB, nausea, abdominal pain and edema. - Objective MAR Reviewed: Yes Vital Signs & Weight: Vital Signs (12 hours) Temp Pulse Resp BP Pulse Ox 11/02/19 05:33 98.9 F 69 20 147/77 H 93 L 11/01/19 20:15 94 L 11/01/19 19:00 98.6 F 70 18 141/75 H 94 L Weight Weight 153.314 kg I&O: 10/31/19 11/01/19 11/02/19 06:59 06:59 06:59 Intake Total 700 720 Output Total 700 500 Balance -700 200 720 Result Diagrams: 11/02/19 05:02 11/02/19 05:02 Phys Exam - Physical Examination Constitutional: NAD Morbidly obese HEENT: moist MMs, sclera anicteric Neck: supple, full ROM Respiratory: no wheezing, clear to auscultation bilateral Cardiovascular: RRR, no significant murmur Gastrointestinal: soft, non-tender, positive bowel sounds Musculoskeletal: no edema Neurological: non-focal, moves all 4 limbs Psychiatric: normal affect, A&O x 3 Skin: no rash Deviation from normal: Bilateral lower leg erythema, improved from yesterday. Dx/Plan - Plan Plan: Sepsis, resolved 2/2 bacteremia of undetermined source SIRS criteria on admission: WBC 11.4 without shift, RR 22 on arrival, LA 2.6. Bl cx: 2/2 Group B strep. Originally started on vanc, switched to cefazolin (10/28). Added Vanc back 10/29 am 2/2 evidence of cellulitis but later stopped 2/2 ID recs. - UA: no signs of infection, cultures negative - CXR: enlarged heart but no pulmonary processes - CT L Spine: mild to severe central canal, lateral recess, and foraminal stenosis, no acute diskitis - Repeat Bcx: negative at 48 hours - Dr Rainey on board- recommended treat empirically for 4-6 weeks with IV Rocephin outpatient - CM consulted for rehab placement Urinary retention Patient reports inability to urinate overnight for the past 2 nights. Denies hx BPH. -Bladder scan completed yesterday and showed post-void residual 50-80 -Start Flomax L shoulder injury - XR normal - possible rotator cuff injury as a result of fall - Unable to obtain MRI due to implantable automatic cardioverter-defibrillator Hyperbilirubinemia, improved - TBili 2.5 in ED, now 1.5 - RUQ US showed liver cysts Normocytic anemia - Iron and TIBC low, Vitamin B12 low, MCV WNL, treating with vit B12 supplement - Monitor with am CBC HFrEF Dx per patient and clinic records. EKG showed pacing ardon and flat T waves, CXR showed enlarged heart. Echo showed EF 35-40%. BNP 213 on admission - Continue home lasix and monitor fluid status - Strict I&Os - 1500 mL fluid restriction Liver mass - CT abd/pelvis: numerous liver masses, some demonstrating interval change, diverticulosis, cholelithiasis - RUQ US showed liver cysts Hx falls likely 2/2 deconditioning -history of weakness and multiple falls at home -PT/OT consulted. Recommended rehab AFib with pacemaker/AICD -Pacemaker/AICD in place -Pacing ardon visible on EKG -Continue home dabigatran T2DM -Continue home Metformin and insulin HTN BP elevated at 140s systolic overnight -Continue home meds -Continue spironolactone LAVELLE -CPAP at night HLD -Continue home meds Ppx: home Dabigatran Code: Full PCP: [facility] - Dr. Olivia Brooks Dispo: Rehab placement pending approval and coordination of outpatient antibiotics Addendum - Attending - Attending Attestation Date/Time: 11/02/19 1250 I personally evaluated the patient and discussed the management with Dr. Angel. I agree with the History, Examination, Assessment and Plan documented above with any addition or exceptions noted below.
[2019-11-02 06:18] LABS: ALT (SGPT) 12 U/L (8-55); AST (SGOT) 32 U/L (5-34); Albumin 2.9 g/dL (3.4-4.8); Alkaline Phosphatase 194 U/L (40-110); Anion Gap 15 mmol/L (10-20); BUN (Urea Nitrogen) 14 mg/dL (8.4-25.7); Bilirubin, Total 1.5 mg/dL (0.2-1.2); Calc. Creatinine Clearance 194 mL/min (70-130); Calcium 8.3 mg/dL (7.8-10.44); Carbon Dioxide 27 mmol/L (23-31); Chloride 96 mmol/L (98-107); Estimated GFR-MDRD Greater than 90; Globulin 4.1 g/dL (2.4-3.5); Glucose 114 mg/dL (80-115); Potassium 3.8 mmol/L (3.5-5.1); Sodium 134 mmol/L (136-145)
[2019-11-02] MEDS: Nebivolol HCl 5 MG TAB PO SCH (07:49)
[2019-11-02] MEDS: Insulin Glargine 55 UNITS in Pre-Filled Syringe 1 EACH SC SCH ×2 (07:49→19:56)
[2019-11-02] MEDS: Famotidine 20 MG TAB PO SCH ×2 (07:49→19:46)
[2019-11-02] MEDS: DULoxetine 60 MG CAP PO SCH (07:49)
[2019-11-02] MEDS: Bumetanide 1 MG TAB PO SCH (07:49)
[2019-11-02] MEDS: Loratadine 10 MG TAB PO SCH (07:50)
[2019-11-02] MEDS: Cyanocobalamin (Vitamin B-12) 1,000 MCG TAB PO SCH (07:50)
[2019-11-02] MEDS: Tamsulosin HCl 0.4 MG CAP PO SCH (07:50)
[2019-11-02] MEDS: Spironolactone 25 MG TAB PO SCH (07:50)
[2019-11-02] MEDS: Apixaban 5 MG TAB PO SCH ×2 (07:50→19:46)
[2019-11-02] MEDS: Furosemide 80 MG TAB PO SCH (07:50)
[2019-11-02] MEDS: Polyethylene Glycol 3350 17 GM Packet PO SCH (07:51)
[2019-11-02] MEDS: cefTRIAXone\\ROCEPHIN 2 GM in Sodium Chloride 0.9% 100 ML IVPB SCH (10:27)
[2019-11-02] MEDS: Atorvastatin Calcium 10 MG TAB PO SCH (19:46)
[2019-11-02] MEDS: Gabapentin 100 MG CAP PO SCH (19:47)
[2019-11-02] MEDS: Fluticasone Propionate Nasal Spray 16 gm Bottle NASAL SCH (19:51)
[2019-11-03] MEDS: Cyclobenzaprine 10 MG TAB PO PRN ×2 (05:04→12:50)
[2019-11-03] MEDS: HYDROcodone/Acetaminophen 10/325 mg Tablet PO PRN ×3 (05:05→17:02)
[2019-11-03 05:24] LABS: #Eosinphils 0.4 thou/uL (0.0-0.7); #Lymphocytes 1.4 thou/uL (1.20-3.40); #Monocytes 1.1 thou/uL (0.11-0.59); #Neutrophils 6.9 thou/uL (1.40-6.50); %Basophils 0.3 % (0.0-1.0); %Lymphocytes 14.1 % (21.0-51.0); %Monocytes 11.1 % (0.0-10.0); %Neutrophils 70.5 % (42.0-75.0); Hemoglobin 14.1 g/dL (14.0-18.0); Mean Corpuscular HGB CONC 31.5 g/dL (32.0-36.0); Mean Corpuscular Hemoglobin 30.1 pg (27.0-31.0); Mean Corpuscular Volume 95.7 fL (78.0-98.0); Mean Platelet Volume 7.5 fL (7.4-10.4); Platelet Count 344 thou/uL (130-400); RBC Distribution Width 13.3 % (11.5-14.5); Red Blood Cell (RBC) Count 4.68 mill/uL (4.70-6.10); White Blood Cell (WBC) Count 9.8 thou/uL (4.8-10.8)
[2019-11-03 05:40] LABS: ALT (SGPT) 12 U/L (8-55); AST (SGOT) 24 U/L (5-34); Albumin 3.2 g/dL (3.4-4.8); Alkaline Phosphatase 197 U/L (40-110); Anion Gap 17 mmol/L (10-20); BUN (Urea Nitrogen) 15 mg/dL (8.4-25.7); Bilirubin, Total 1.6 mg/dL (0.2-1.2); Calc. Creatinine Clearance 177 mL/min (70-130); Calcium 8.6 mg/dL (7.8-10.44); Carbon Dioxide 27 mmol/L (23-31); Chloride 93 mmol/L (98-107); Estimated GFR-MDRD 86; Globulin 4.3 g/dL (2.4-3.5); Glucose 73 mg/dL (80-115); Potassium 3.6 mmol/L (3.5-5.1); Protein, Total 7.5 g/dL (5.8-8.1); Sodium 133 mmol/L (136-145)
--- NOTE | 2019-11-03 06:26 | PDOC.FM ---
- Subjective Subjective: Patient reports chronic headache, back pain and leg pain, unchanged from baseline. He says he slept well overnight. He denies vision changes, chest pain, SOB, palpitations, nausea, abdominal pain and edema. His was able to visit with him yesterday afternoon which he said helped his mood a great deal. - Objective MAR Reviewed: Yes Vital Signs & Weight: Vital Signs (12 hours) Temp Pulse Resp BP Pulse Ox 11/02/19 20:37 94 L 11/02/19 19:19 98.6 F 64 20 133/75 94 L Weight Weight 153.314 kg I&O: 11/01/19 11/02/19 11/03/19 06:59 06:59 06:59 Intake Total 700 1270 1310 Output Total 500 600 450 Balance 200 670 860 Result Diagrams: 11/03/19 05:18 11/03/19 05:18 Phys Exam - Physical Examination Constitutional: NAD Morbidly obese Sleeping comfortably upon entering the room HEENT: moist MMs, sclera anicteric Neck: supple, full ROM Respiratory: no wheezing, clear to auscultation bilateral Cardiovascular: RRR, no significant murmur Gastrointestinal: soft, non-tender, positive bowel sounds Musculoskeletal: no edema Neurological: non-focal, moves all 4 limbs Psychiatric: normal affect, A&O x 3 Skin: no rash Deviation from normal: Erythema of lower legs bilaterally, unchanged Dx/Plan - Plan Plan: Sepsis, resolved 2/2 bacteremia of undetermined source SIRS criteria on admission: WBC 11.4 without shift, RR 22 on arrival, LA 2.6. Bl cx: 2/2 Group B strep. Originally started on vanc, switched to cefazolin (10/28). Added Vanc back 10/29 am 2/2 evidence of cellulitis but later stopped 2/2 ID recs. - UA: no signs of infection, cultures negative - CXR: enlarged heart but no pulmonary processes - CT L Spine: mild to severe central canal, lateral recess, and foraminal stenosis, no acute diskitis - Repeat Bcx: negative at 48 hours - Dr Rainey on board: recommended treat empirically for 4-6 weeks with IV Rocephin outpatient - Stopped cefazolin on 11/01, started Rocephin 2mg Q24H (11/01) - CM consulted for rehab placement Urinary retention Patient reports inability to urinate overnight intermittently throughout hospitalization. Denies hx BPH. -Bladder scan completed 10/31 and showed post-void residual 50-80 -Continue Flomax L shoulder injury - XR normal - possible rotator cuff injury as a result of fall - Unable to obtain MRI due to implantable automatic cardioverter-defibrillator Hyperbilirubinemia, improved - TBili 2.5 in ED, now 1.5 - RUQ US showed liver cysts Normocytic anemia - Iron and TIBC low, Vitamin B12 low, MCV WNL, treating with vit B12 supplement - Monitor with am CBC HFrEF Dx per patient and clinic records. EKG showed pacing ardon and flat T waves, CXR showed enlarged heart. Echo showed EF 35-40%. BNP 213 on admission - Continue home lasix and monitor fluid status - Strict I&Os - 1500 mL fluid restriction Liver mass - CT abd/pelvis: numerous liver masses, some demonstrating interval change, diverticulosis, cholelithiasis - RUQ US showed liver cysts Hx falls likely 2/2 deconditioning -history of weakness and multiple falls at home -PT/OT consulted. Recommended rehab AFib with pacemaker/AICD -Pacemaker/AICD in place -Pacing ardon visible on EKG -Continue home dabigatran T2DM -Continue home Metformin and insulin HTN -Continue home meds -Continue spironolactone LAVELLE -CPAP at night HLD -Continue home meds Ppx: home Dabigatran Code: Full PCP: [facility] - Dr. Olivia Brooks Dispo: Rehab placement pending approval and coordination of outpatient antibiotics Addendum - Attending - Attending Attestation Date/Time: 11/03/19 1314 I personally evaluated the patient and discussed the management with Dr. Angel. I agree with the History, Examination, Assessment and Plan documented above with any addition or exceptions noted below.
[2019-11-03] MEDS: Bumetanide 1 MG TAB PO SCH (08:48)
[2019-11-03] MEDS: Nebivolol HCl 5 MG TAB PO SCH (08:48)
[2019-11-03] MEDS: Famotidine 20 MG TAB PO SCH ×2 (08:48→21:20)
[2019-11-03] MEDS: DULoxetine 60 MG CAP PO SCH (08:48)
[2019-11-03] MEDS: Cyanocobalamin (Vitamin B-12) 1,000 MCG TAB PO SCH (08:48)
[2019-11-03] MEDS: Loratadine 10 MG TAB PO SCH (08:48)
[2019-11-03] MEDS: Spironolactone 25 MG TAB PO SCH (08:49)
[2019-11-03] MEDS: Tamsulosin HCl 0.4 MG CAP PO SCH (08:49)
[2019-11-03] MEDS: Apixaban 5 MG TAB PO SCH ×2 (08:49→21:20)
[2019-11-03] MEDS: Furosemide 80 MG TAB PO SCH (08:49)
[2019-11-03] MEDS: cefTRIAXone\\ROCEPHIN 2 GM in Sodium Chloride 0.9% 100 ML IVPB SCH (09:00)
[2019-11-03] MEDS: Polyethylene Glycol 3350 17 GM Packet PO SCH (09:00)
[2019-11-03] MEDS ORDERED: Magnesium Oxide 250 MG TAB PO SCH (11:51)
[2019-11-03] MEDS: Insulin Glargine 55 UNITS in Pre-Filled Syringe 1 EACH SC SCH ×2 (12:47→21:22)
--- NOTE | 2019-11-03 16:04 | SPC ---
Ultrasound-guidedrightupper extremity PICC placement: 11/03/2019 HISTORY: Pacemaker infection, IV antibiotics FINDINGS: Informed consent obtained prior to the procedure. Right antecubital fossa prepped and draped in normal sterile fashion. Skin overlying theright basilicvein anesthetized with 1% buffered lidocaine. With direct sonographic guidance, vascular access is obtained via the right basilicvein and an 0.018in wire was advanced to the cavoatrial junction. Intravascular length is calculated at 43 cm and of the PICC is cut according ly. Needle is removed and replaced with a peel-away sheath. The PICC was advanced over the wire. Wire and peel-away sheath were removed. The tip of the catheter overlies the cavoatrial junction. The port flushes well and the catheter is ready for use. Exposure data: 0.8 minutes of fluoroscopic time 9691 mGy per centimeter squared IMPRESSION: Successful ultrasound guided placement of a rightupper extremity PICC.
--- NOTE | 2019-11-03 16:33 | PRG ---
DATE OF SERVICE: 11/03/2019 SUBJECTIVE: He is not feeling well. He has had a lot of low back pain and left shoulder pain, although, not as much as before. No dyspnea. No cough. No abdominal pain. No diarrhea. He is voiding in the urinal. OBJECTIVE: GENERAL: Awake and alert. VITAL SIGNS: His temperature is normal. LUNGS: Clear. EXTREMITIES: Range of motion of the left shoulder is little bit better. HEART: S1 and S2, regular rate. ABDOMEN: Soft, moderately distended, but not tender. No joint inflammatory activity. LABORATORY DATA: White cell count is down to 9.8, hemoglobin 14.1, platelets 344. Creatinine 0.88. ASSESSMENT/DISCUSSION: Morbid obesity, cardiomyopathy dilated with automatic implantable cardioverter-defibrillator, back pain, severe bacteremia 2/2 sets due to group B Streptococcus, appears to be continuous bacteremia with the changes in the leg more likely to represent stasis rather than true cellulitis. Due to the concerns with the device as well as joints including the back, we have recommended protracted treatment with Rocephin to be continued for 4 to 6 weeks with followup weekly labs. Job ID: [id number]
[2019-11-03] MEDS: Gabapentin 100 MG CAP PO SCH (21:20)
[2019-11-03] MEDS: Atorvastatin Calcium 10 MG TAB PO SCH (21:20)
[2019-11-03] MEDS: Fluticasone Propionate Nasal Spray 16 gm Bottle NASAL SCH (21:22)
[2019-11-04] MEDS: HYDROcodone/Acetaminophen 10/325 mg Tablet PO PRN (05:53)
[2019-11-04] MEDS: Cyclobenzaprine 10 MG TAB PO PRN (05:54)
--- NOTE | 2019-11-04 06:14 | PDOC.FM ---
- Subjective Subjective: Patient says he is feeling well today, significantly better than yesterday. He reports chronic headache, back pain and L shoulder pain but describes it as mild. He denies vision changes, chest pain, SOB, nausea, vomiting and abdominal pain. He reports his lower leg pain resolved after receiving magnesium yesterday morning. - Objective MAR Reviewed: Yes Vital Signs & Weight: Vital Signs (12 hours) Temp Pulse Resp BP BP BP Pulse Ox 11/04/19 04:00 98.2 F 69 20 136/77 96 11/04/19 00:00 98.0 F 69 20 144/84 H 98 11/03/19 20:10 97.9 F 71 20 129/81 93 L 11/03/19 20:00 95 Weight Weight 153.314 kg I&O: 11/02/19 11/03/19 11/04/19 06:59 06:59 06:59 Intake Total 1270 1310 1000 Output Total 600 450 600 Balance 670 860 400 Result Diagrams: 11/03/19 05:18 11/03/19 05:18 Phys Exam - Physical Examination Constitutional: NAD HEENT: moist MMs, sclera anicteric Neck: supple, full ROM Respiratory: no wheezing, clear to auscultation bilateral Cardiovascular: RRR, no significant murmur Gastrointestinal: soft, non-tender, positive bowel sounds Musculoskeletal: no edema Neurological: non-focal, moves all 4 limbs Psychiatric: normal affect, A&O x 3 Skin: no rash Deviation from normal: Lower leg erythema, mild, stable Dx/Plan - Plan Plan: Sepsis, resolved 2/2 bacteremia of undetermined source SIRS criteria on admission: WBC 11.4 without shift, RR 22 on arrival, LA 2.6. Bl cx: 2/2 Group B strep. Originally started on vanc, switched to cefazolin (10/28). Added Vanc back 10/29 am 2/2 evidence of cellulitis but later stopped 2/2 ID recs. - UA: no signs of infection, cultures negative - CXR: enlarged heart but no pulmonary processes - CT L Spine: mild to severe central canal, lateral recess, and foraminal stenosis, no acute diskitis - Repeat Bcx: negative - Dr Rainey on board: recommended treat empirically for 4-6 weeks with IV Rocephin outpatient, weekly labs - Stopped cefazolin on 11/01, started Rocephin 2mg Q24H (11/01) - CM consulted for rehab placement. Pending approval from [facility] Urinary retention Patient reported inability to urinate overnight intermittently throughout hospitalization, now resolved. Denies hx BPH. -Bladder scan completed 10/31 and showed post-void residual 50-80 -Continue Flomax L shoulder injury - XR normal - possible rotator cuff injury as a result of fall - Unable to obtain MRI due to implantable automatic cardioverter-defibrillator Hyperbilirubinemia, improved - TBili 2.5 in ED, now 1.6 - RUQ US showed liver cysts Normocytic anemia - Iron and TIBC low, Vitamin B12 low, MCV WNL, treating with vit B12 supplement - Stable HFrEF Dx per patient and clinic records. EKG showed pacing ardon and flat T waves, CXR showed enlarged heart. Echo showed EF 35-40%. BNP 213 on admission - Continue home lasix and monitor fluid status - Strict I&Os - 1500 mL fluid restriction Liver mass - CT abd/pelvis: numerous liver masses, some demonstrating interval change, diverticulosis, cholelithiasis - RUQ US showed liver cysts Hx falls likely 2/2 deconditioning -history of weakness and multiple falls at home -PT/OT consulted. Recommended rehab AFib with pacemaker/AICD -Pacemaker/AICD in place -Pacing ardon visible on EKG -Continue home dabigatran T2DM -Continue home Metformin and insulin HTN -Continue home meds -Continue spironolactone LAVELLE -CPAP at night HLD -Continue home meds Ppx: home Dabigatran Code: Full PCP: [facility] - Dr. Olivia Brooks Dispo: Discharge to [facility] Rehab with outpatient antibiotics pending approval Addendum - Attending - Attending Attestation Date/Time: 11/04/19 9734 I personally evaluated the patient and discussed the management with Dr. Angel. I agree with the History, Examination, Assessment and Plan documented above with any addition or exceptions noted below.
[2019-11-04 08:23] VITALS: BP 143/82; TEMP 97.9
[2019-11-04] MEDS: DULoxetine 60 MG CAP PO SCH (08:33)
[2019-11-04] MEDS: Famotidine 20 MG TAB PO SCH (08:34)
[2019-11-04] MEDS: Tamsulosin HCl 0.4 MG CAP PO SCH (08:34)
[2019-11-04] MEDS: Furosemide 80 MG TAB PO SCH (08:34)
[2019-11-04] MEDS: Cyanocobalamin (Vitamin B-12) 1,000 MCG TAB PO SCH (08:34)
[2019-11-04] MEDS: Loratadine 10 MG TAB PO SCH (08:34)
[2019-11-04] MEDS: Apixaban 5 MG TAB PO SCH (08:35)
[2019-11-04] MEDS: Nebivolol HCl 5 MG TAB PO SCH (08:35)
[2019-11-04] MEDS: Spironolactone 25 MG TAB PO SCH (08:38)
[2019-11-04] MEDS: Bumetanide 1 MG TAB PO SCH (08:43)
[2019-11-04] MEDS: Polyethylene Glycol 3350 17 GM Packet PO SCH (08:44)
[2019-11-04] MEDS: Insulin Glargine 55 UNITS in Pre-Filled Syringe 1 EACH SC SCH (08:47)
[2019-11-04] MEDS: cefTRIAXone\\ROCEPHIN 2 GM in Sodium Chloride 0.9% 100 ML IVPB SCH (09:22)
== END 2019-11-04 14:20 | DRG 872 ==
LOC: ERS 12:19 → T4-A 15:07 → OBSVTOIN 15:07 → ERS 16:48
PROVIDERS: ADMIT Family Medicine; ATTEND Family Medicine
PROC: 02HV33Z Insertion of Infusion Device into Superior Vena Cava, Percutaneous Approach (ICD-10-PCS; principal; 2019-11-03)
PROC: B518ZZA Fluoroscopy of Superior Vena Cava, Guidance (ICD-10-PCS; 2019-11-03)
PROC: B548ZZA Ultrasonography of Superior Vena Cava, Guidance (ICD-10-PCS; 2019-11-03)
DX: A40.1 Sepsis due to streptococcus, group B (principal); I50.22 Chronic systolic (congestive) heart failure; I48.20 Chronic atrial fibrillation, unspecified; Z68.42 Body mass index [BMI] 45.0-49.9, adult; E87.2 Acidosis; I42.0 Dilated cardiomyopathy; E87.1 Hypo-osmolality and hyponatremia; L03.116 Cellulitis of left lower limb; Z20.828 Contact with and (suspected) exposure to other viral communicable diseases; G47.33 Obstructive sleep apnea (adult) (pediatric); E11.9 Type 2 diabetes mellitus without complications; I11.0 Hypertensive heart disease with heart failure; E78.5 Hyperlipidemia, unspecified; E87.6 Hypokalemia; G89.29 Other chronic pain; M54.9 Dorsalgia, unspecified; E66.01 Morbid (severe) obesity due to excess calories; K21.9 Gastro-esophageal reflux disease without esophagitis; E80.6 Other disorders of bilirubin metabolism; R16.0 Hepatomegaly, not elsewhere classified; S46.002A Unspecified injury of muscle(s) and tendon(s) of the rotator cuff of left shoulder, initial encounter; D64.9 Anemia, unspecified; M19.90 Unspecified osteoarthritis, unspecified site; K76.89 Other specified diseases of liver; W18.30XA Fall on same level, unspecified, initial encounter; R33.9 Retention of urine, unspecified; I25.2 Old myocardial infarction; Z95.810 Presence of automatic (implantable) cardiac defibrillator; Z79.899 Other long term (current) drug therapy; Z79.4 Long term (current) use of insulin; Z79.51 Long term (current) use of inhaled steroids; Z79.01 Long term (current) use of anticoagulants
CPT/HCPCS: 36415; 36416; 36569; 36600; 70450; 71045; 72132; 74178; 76705; 80048; 80053; 81003; 81015; 82010; 82550; 82607; 82728; 82747; 83036; 83540; 83550; 83605; 83690; 83735; 83880; 84100; 84443; 84484; 85025; 87040; 87077; 87086; 87149; 87186; 87635; 93005; 93306; 96365; 96366; 96367; 96374; 96375; G0378; J0690; J0696; J1644; J1815; J2270; J3370; J3490; J7030; Q9967; U0003

== ENCOUNTER 2020-06-24 12:33 | Emergency (ER) | payer MEDICARE, OTHER ==
[2020-06-24 13:59] LABS: #Eosinphils 0.1 thou/uL (0.0-0.7); #Lymphocytes 1.7 thou/uL (1.20-3.40); #Monocytes 0.6 thou/uL (0.11-0.59); #Neutrophils 4.9 thou/uL (1.40-6.50); %Basophils 0.5 % (0.0-1.0); %Eosinophils 1.9 % (0.0-10.0); %Lymphocytes 22.7 % (21.0-51.0); %Monocytes 7.7 % (0.0-10.0); %Neutrophils 67.2 % (42.0-75.0); Hemoglobin 13.2 g/dL (14.0-18.0); Mean Corpuscular HGB CONC 33.4 g/dL (32.0-36.0); Mean Corpuscular Hemoglobin 31.8 pg (27.0-31.0); Mean Corpuscular Volume 95.3 fL (78.0-98.0); Platelet Count 186 thou/uL (130-400); RBC Distribution Width 13.2 % (11.5-14.5); Red Blood Cell (RBC) Count 4.16 mill/uL (4.70-6.10); White Blood Cell (WBC) Count 7.3 thou/uL (4.8-10.8)
[2020-06-24 14:23] LABS: ALT (SGPT) 16 U/L (8-55); AST (SGOT) 14 U/L (5-34); Albumin 3.6 g/dL (3.4-4.8); Alkaline Phosphatase 104 U/L (40-110); Anion Gap 14 mmol/L (10-20); BUN (Urea Nitrogen) 21 mg/dL (8.4-25.7); Bilirubin, Total 0.3 mg/dL (0.2-1.2); Calc. Creatinine Clearance 0 mL/min (70-130); Calcium 10.4 mg/dL (7.8-10.44); Carbon Dioxide 27 mmol/L (23-31); Chloride 100 mmol/L (98-107); Globulin 2.6 g/dL (2.4-3.5); Glucose 293 mg/dL (80-115); Potassium 4.2 mmol/L (3.5-5.1); Protein, Total 6.2 g/dL (5.8-8.1); Sodium 137 mmol/L (136-145)
== END 2020-06-24 15:08 | disposition home or self-care (01) ==
LOC: ERS 12:33
DX: R07.89 Other chest pain (principal); E66.01 Morbid (severe) obesity due to excess calories; G47.30 Sleep apnea, unspecified; I25.2 Old myocardial infarction; E11.9 Type 2 diabetes mellitus without complications; K21.9 Gastro-esophageal reflux disease without esophagitis; E78.5 Hyperlipidemia, unspecified; I10 Essential (primary) hypertension; M19.90 Unspecified osteoarthritis, unspecified site; I48.91 Unspecified atrial fibrillation; Z87.891 Personal history of nicotine dependence; Z79.84 Long term (current) use of oral hypoglycemic drugs; Z79.899 Other long term (current) drug therapy; Z79.01 Long term (current) use of anticoagulants
CPT/HCPCS: 36415; 71045; 80053; 84484; 85025; 93005

== ENCOUNTER 2021-08-20 14:25 | Emergency (ER) | payer MEDICARE, OTHER ==
[2021-08-20 15:14] LABS: Hemoglobin 14.7 g/dL (14.0-18.0); Mean Corpuscular Hemoglobin 30.3 pg (27.0-31.0); Mean Corpuscular Volume 95.1 fL (78.0-98.0); Red Blood Cell (RBC) Count 4.85 mill/uL (4.70-6.10)
[2021-08-20 15:15] LABS: #Eosinphils 0.2 thou/uL (0.0-0.7); #Lymphocytes 1.7 thou/uL (1.20-3.40); #Monocytes 0.6 thou/uL (0.11-0.59); #Neutrophils 4.5 thou/uL (1.40-6.50); %Basophils 0.4 % (0.0-1.0); %Eosinophils 2.6 % (0.0-10.0); Mean Corpuscular HGB CONC 31.8 g/dL (32.0-36.0); Mean Platelet Volume 7.9 fL (7.4-10.4); Platelet Count 208 thou/uL (130-400); RBC Distribution Width 13.6 % (11.5-14.5)
[2021-08-20 15:26] LABS: ALT (SGPT) 16 U/L (8-55); AST (SGOT) 14 U/L (5-34); Alkaline Phosphatase 97 U/L (40-110); Anion Gap 16 mmol/L (10-20); BUN (Urea Nitrogen) 15 mg/dL (8.4-25.7); Bilirubin, Total 0.6 mg/dL (0.2-1.2); Calc. Creatinine Clearance 0 mL/min (70-130); Calcium 9.6 mg/dL (7.8-10.44); Carbon Dioxide 24 mmol/L (23-31); Chloride 104 mmol/L (98-107); Estimated GFR 94; Glucose 172 mg/dL (80-115); Lipase 17 U/L (8-78); Sodium 140 mmol/L (136-145)
== END 2021-08-20 16:00 | disposition home or self-care (01) ==
LOC: ERS 14:25
DX: S30.813A Abrasion of scrotum and testes, initial encounter (principal); I25.2 Old myocardial infarction; E11.9 Type 2 diabetes mellitus without complications; E78.5 Hyperlipidemia, unspecified; I10 Essential (primary) hypertension; X58.XXXA Exposure to other specified factors, initial encounter
CPT/HCPCS: 76870; 80053; 83690; 85025; 93976

== ENCOUNTER 2023-01-06 11:10 | Outpatient (CLI) | payer OTHER | END 2023-01-06 11:11 | disposition home or self-care (01) | LOC: BICRAD 11:10 | PROVIDERS: ATTEND Family Medicine | DX: M47.817 Spondylosis without myelopathy or radiculopathy, lumbosacral region (principal); M47.816 Spondylosis without myelopathy or radiculopathy, lumbar region | CPT/HCPCS: 36415; 72120; 80053; 85025 ==

== ENCOUNTER 2024-01-15 15:31 | Outpatient (CLI) | payer OTHER | END 2024-01-15 15:32 | disposition home or self-care (01) | LOC: BICRAD 15:31 | PROVIDERS: ATTEND Student in an Organized Health Care Education/Training Program | DX: R05.1 Acute cough (principal); I51.7 Cardiomegaly | CPT/HCPCS: 71046 ==

== ENCOUNTER 2024-10-21 10:43 | Emergency (ER) | payer OTHER ==
[2024-10-21 12:31] LABS: #Basophils 0.06 10x3/uL (0.0-0.2); #Eosinophils 0.15 10x3/uL (0.0-0.7); #Monocytes 0.83 10x3/uL (0.11-0.59); #Neutrophils 6.38 10x3/uL (1.40-6.50); %Basophils 0.6 % (0.0-1.0); %Eosinophils 1.6 % (0.0-10.0); %Lymphocytes 21.9 % (21.0-51.0); %Monocytes 8.6 % (0.0-10.0); %Neutrophils 66.3 % (42.0-75.0); Hematocrit 48.8 % (42.0-52.0); Hemoglobin 15.4 g/dL (14.0-18.0); Mean Corpuscular Hemoglobin 29.3 pg (27.0-31.0); Mean Corpuscular Volume 93.0 fL (78.0-98.0); Platelet Count 241 10x3/uL (130-400); Red Blood Cell (RBC) Count 5.25 mill/uL (4.70-6.10); White Blood Cell (WBC) Count 9.63 10x3/uL (4.8-10.8)
[2024-10-21 12:43] LABS: Acetaminophen Less than 10 mcg/mL (Less than 10); Salicylate Less than 8.0 mg/dL (Less than 8.0)
[2024-10-21 12:44] LABS: ALT (SGPT) 15 U/L (Less than 45); AST (SGOT) 21 U/L (11-34); Albumin 3.6 g/dL (3.1-4.5); Alkaline Phosphatase 110 U/L (40-110); Anion Gap 14 mmol/L (10-20); BUN (Urea Nitrogen) 13 mg/dL (8.4-25.7); Bilirubin, Total 0.9 mg/dL (0.3-1.2); Calc. Creatinine Clearance 0 mL/min (70-130); Calcium 9.3 mg/dL (7.8-10.44); Carbon Dioxide 22 mmol/L (23-31); Chloride 106 mmol/L (98-107); Globulin 3.7 g/dL (2.4-3.5); Glucose 156 mg/dL (83-110); Potassium 4.0 mmol/L (3.5-5.1); Sodium 138 mmol/L (136-145)
[2024-10-21 13:30] LABS: Bacteria/HPF None Seen HPF (None Seen); CAUTI Indications for Culture Pelvic or flank pain; Glucose, Urine (Dipstick) Greater than 1000 mg/dL (Negative); Leukocyte Negative Leu/uL (Negative); Protein, Urine (Dipstick) Negative (Neg-Trace); RBC/HPF None Seen HPF (0-3); Specific Gravity, Urine 1.029 (1.002-1.036); WBC/HPF None Seen HPF (0-3)
[2024-10-21 13:35] LABS: Cocaine Metabolite Screen Negative (Negative); THC/Cannabinoid Screen Negative (Negative); Tricyclic Screen Negative (Negative)
[2024-10-21 13:38] LABS: Urine Culture Reflex No No
== END 2024-10-21 15:19 | disposition home or self-care (01) ==
LOC: ERS 10:43
DX: F32.9 Major depressive disorder, single episode, unspecified (principal); F43.0 Acute stress reaction; E11.9 Type 2 diabetes mellitus without complications; I11.0 Hypertensive heart disease with heart failure; I50.9 Heart failure, unspecified; I25.2 Old myocardial infarction
CPT/HCPCS: 80053; 80306; 80307; 81001; 84443; 85025; 93005; 99285

== ENCOUNTER 2024-11-08 19:46 | Emergency (ER) | payer OTHER | END 2024-11-08 21:03 | disposition left against medical advice (07) | LOC: ERS 19:46 | DX: Z53.21 Procedure and treatment not carried out due to patient leaving prior to being seen by health care provider (principal) ==